=== PATIENT | female | born 1975 | race African-American/Black ===

== ENCOUNTER 2017-09-05 12:01 | Emergency (ER) | payer MEDICAID, OTHER ==
[~2017-09-05] VITALS: Ht 160 cm; Wt 60.0 kg
[~2017-09-05 12:01] MED LIST: FURO-151 PO; GABA-531; HYDR2TAB4 PO; KEPP500 PO; MESA0.37 PO; OXYB5TAB11 PO; POTA10CA42 PO; PRED5TAB48 PO
[2017-09-05] MEDS ORDERED: SODIUM CHLORIDE 0.9% 1,000 ML IV ONE (14:44)
[2017-09-05] MEDS ORDERED: ONDANSETRON HCL 4MG/2ML VIAL IV ONE (15:15)
[2017-09-05] MEDS ORDERED: MORPHINE SULFATE 4 MG/ML CPJ (NOT FOR IM USE) IV ONE (15:15)
[2017-09-05 15:21] LABS: BASOPHILS % 0.3 % (0.0-2.0); EOSINOPHILS % 0.7 % (0.0-5.0); HEMATOCRIT. 38.4 % (36.0-48.0); HEMOGLOBIN. 12.7 g/dL (12.0-16.0); LYMPHOCYTES % 20.3 % (20.0-50.0); MEAN CORPUSCULAR HEMOGLOBIN 30.6 pg (28.0-32.0); MEAN CORPUSCULAR VOLUME 92.2 fL (81.0-99.0); MEAN PLATELET VOLUME 7.7 fl (7.4-10.4); MONOCYTES % 5.9 % (2.0-8.0); NEUTROPHILS % 72.8 % (40.0-76.0); PLATELET 359 x1000/uL (130-400); RED BLOOD CELL COUNT 4.16 mill/uL (4.2-5.4); RED CELL DISTRIBUTION WIDTH 13.8 % (11.6-14.6)
[2017-09-05] MEDS ORDERED: DIPHENHYDRAMINE 50MG/ML VIAL IV ONE (15:30)
[2017-09-05 15:35] LABS: CARBON DIOXIDE 28 mEq/L (21-32); CHLORIDE 107 mEq/L (98-107)
[2017-09-05] MEDS ORDERED: DIATR MEGLU/DIATRIZOATE SOLN 30ML ONE (15:38)
[2017-09-05 16:17] LABS: HCG SCREEN NEGATIVE
[2017-09-05 17:26] LABS: CLARITY URINE CLOUDY (CLEAR); COLOR URINE YELLOW (YELLOW); KETONES URINE 1+ (NEGATIVE); LEUKOCYTE ESTERASE URINE 2+ (NEGATIVE); NITRITE URINE NEGATIVE (NEGATIVE); OCCULT BLOOD URINE NEGATIVE (NEGATIVE); PH URINE 7.5 (4.5-8.0); PROTEIN URINE NEGATIVE (NEGATIVE); SPECIFIC GRAVITY URINE 1.016 (1.005-1.030); UROBILINOGEN URINE 0.2 E.U./dL (0.2-1.0)
[2017-09-05] MEDS ORDERED: IOHEXOL-300 100 ML BOTTLE ONE (18:32)
[2017-09-05 18:46] LABS: *AMPHETAMINES SCREEN URINE NEGATIVE (NEGATIVE); *BARBITURATES SCREEN URINE NEGATIVE (NEGATIVE); *BENZODIAZEPINES SCREEN URINE NEGATIVE (NEGATIVE); CANNABINOID URINE SCREEN NEGATIVE (NEGATIVE); METHADONE URINE SCREEN NEGATIVE (NEGATIVE); PHENCYCLIDINE URINE SCREEN NEGATIVE (NEGATIVE)
[2017-09-05 18:51] LABS: *COCAINE SCREEN URINE PRESUMTIVE POSITIVE (NEGATIVE); OPIATES URINE SCREEN PRESUMTIVE POSITIVE (NEGATIVE)
[2017-09-05 19:38] VITALS: BP 95/55
== END 2017-09-05 20:02 | disposition home or self-care (01) ==
LOC: ER 12:38
DX: K76.0 Fatty (change of) liver, not elsewhere classified (principal); K50.90 Crohn's disease, unspecified, without complications; Z85.038 Personal history of other malignant neoplasm of large intestine; Z90.49 Acquired absence of other specified parts of digestive tract; Z88.6 Allergy status to analgesic agent; Z88.8 Allergy status to other drugs, medicaments and biological substances
CPT/HCPCS: 36415; 74177; 80053; 80305; 81001; 83690; 84703; 85025; 96361; 96374; 96375; 99285; J1200; J2270; J2405; J7030; Q9967; Z7610; Q9963

== ENCOUNTER 2017-10-31 01:56 | Emergency (ER) | payer MEDICAID ==
[~2017-10-31] VITALS: Ht 170.2 cm; Wt 78.0 kg
[2017-10-31] MEDS ORDERED: LEVETIRACETAM 500MG PREMIX 100 ML IV ONE (02:45)
[2017-10-31 07:25] VITALS: BP 130/81
== END 2017-10-31 07:58 | disposition home or self-care (01) ==
LOC: ER 01:56
DX: G40.409 Other generalized epilepsy and epileptic syndromes, not intractable, without status epilepticus (principal); F14.10 Cocaine abuse, uncomplicated; F17.200 Nicotine dependence, unspecified, uncomplicated; Z85.038 Personal history of other malignant neoplasm of large intestine; Z88.5 Allergy status to narcotic agent; Z91.14 Patient's other noncompliance with medication regimen; Z88.6 Allergy status to analgesic agent; Z88.8 Allergy status to other drugs, medicaments and biological substances
CPT/HCPCS: 96365; 96366; 99285; J1953; Z7610

== ENCOUNTER 2017-10-31 08:00 | Emergency (ER) | payer MEDICAID ==
[~2017-10-31] VITALS: Ht 167.6 cm; Wt 59.0 kg
[2017-10-31] MEDS ORDERED: LORAZEPAM 1MG TABLET PO ONE (08:30)
[2017-10-31 09:36] LABS: BASOPHILS % 0.2 % (0.0-2.0); EOSINOPHILS % 0.1 % (0.0-5.0); HEMATOCRIT. 37.3 % (36.0-48.0); HEMOGLOBIN. 12.6 g/dL (12.0-16.0); LYMPHOCYTES % 21.6 % (20.0-50.0); MEAN CORPUSCULAR HEMOGLOBIN 29.7 pg (28.0-32.0); MONOCYTES % 7.6 % (2.0-8.0); NEUTROPHILS % 70.5 % (40.0-76.0); PLATELET 270 x1000/uL (130-400); RED BLOOD CELL COUNT 4.24 mill/uL (4.2-5.4)
[2017-10-31 09:42] LABS: INR 1.1; PROTHROMBIN TIME 11.6 sec (9.4-11.6)
[2017-10-31 09:46] LABS: CHLORIDE 107 mEq/L (98-107)
[2017-10-31 09:57] LABS: AMMONIA < 25 uMol/L (<32); ETHANOL BLOOD < 10 mg/dL
[2017-10-31 11:17] VITALS: BP 125/82
[2017-11-01 10:56] LABS: *AMPHETAMINES SCREEN URINE NEGATIVE (NEGATIVE); *BARBITURATES SCREEN URINE NEGATIVE (NEGATIVE); *BENZODIAZEPINES SCREEN URINE PRESUMTIVE POSITIVE (NEGATIVE); *COCAINE SCREEN URINE PRESUMTIVE POSITIVE (NEGATIVE); METHADONE URINE SCREEN NEGATIVE (NEGATIVE); OPIATES URINE SCREEN PRESUMTIVE POSITIVE (NEGATIVE)
[2017-11-01 10:57] LABS: CANNABINOID URINE SCREEN NEGATIVE (NEGATIVE); PHENCYCLIDINE URINE SCREEN NEGATIVE (NEGATIVE)
== END 2017-10-31 11:57 | disposition home or self-care (01) ==
LOC: ER 08:04
DX: F14.10 Cocaine abuse, uncomplicated (principal); G40.909 Epilepsy, unspecified, not intractable, without status epilepticus; R79.1 Abnormal coagulation profile; F17.200 Nicotine dependence, unspecified, uncomplicated; Z88.5 Allergy status to narcotic agent; Z88.8 Allergy status to other drugs, medicaments and biological substances
CPT/HCPCS: 36415; 80053; 80305; 80307; 80329; 82140; 83880; 84484; 85025; 85610; 99284; G0482; Z7610

== ENCOUNTER 2017-10-31 16:34 | Emergency (ER) | payer MEDICAID ==
[~2017-10-31] VITALS: Ht 167.6 cm; Wt 55.0 kg
[2017-10-31 17:27] LABS: BASOPHILS % 0.2 % (0.0-2.0); EOSINOPHILS % 0.2 % (0.0-5.0); LYMPHOCYTES % 36.1 % (20.0-50.0); MEAN CORPUSCULAR HEMOGLOBIN 29.2 pg (28.0-32.0); MEAN CORPUSCULAR VOLUME 87.7 fL (81.0-99.0); MONOCYTES % 8.7 % (2.0-8.0); NEUTROPHILS % 54.8 % (40.0-76.0); PLATELET 303 x1000/uL (130-400); RED BLOOD CELL COUNT 4.45 mill/uL (4.2-5.4); RED CELL DISTRIBUTION WIDTH 14.3 % (11.6-14.6)
[2017-10-31 17:29] LABS: CHLORIDE 106 mEq/L (98-107)
[2017-10-31 17:32] LABS: INR 1.1; PROTHROMBIN TIME 11.6 sec (9.4-11.6)
[2017-10-31 17:51] LABS: HCG SCREEN NEGATIVE
[2017-10-31] MEDS ORDERED: ONDANSETRON 4MG ODT PO ONE (21:45)
[2017-10-31] MEDS ORDERED: IBUPROFEN 400MG TABLET PO ONE (21:45)
[2017-10-31 22:26] LABS: CLARITY URINE CLEAR (CLEAR); COLOR URINE YELLOW (YELLOW); KETONES URINE 3+ (NEGATIVE); LEUKOCYTE ESTERASE URINE 1+ (NEGATIVE); NITRITE URINE NEGATIVE (NEGATIVE); OCCULT BLOOD URINE NEGATIVE (NEGATIVE); PH URINE 7.5 (4.5-8.0); PROTEIN URINE NEGATIVE (NEGATIVE); SPECIFIC GRAVITY URINE 1.013 (1.005-1.030); UROBILINOGEN URINE 0.2 E.U./dL (0.2-1.0)
[2017-10-31] MEDS ORDERED: LEVETIRACETAM 500MG/5ML CUP PO ONE (23:00)
[2017-11-01 10:00] VITALS: BP 112/68
== END 2017-11-01 10:28 | disposition home or self-care (01) ==
LOC: ER 18:21
DX: N39.0 Urinary tract infection, site not specified (principal); R56.9 Unspecified convulsions; F14.10 Cocaine abuse, uncomplicated; F17.200 Nicotine dependence, unspecified, uncomplicated; Z88.5 Allergy status to narcotic agent; Z88.8 Allergy status to other drugs, medicaments and biological substances
CPT/HCPCS: 36415; 80053; 81003; 83690; 84703; 85025; 85610; 99284; Q0162; Z7610

== ENCOUNTER 2018-11-16 15:02 | Inpatient (IN) | payer MEDICAID ==
[~2018-11-16] VITALS: Ht 167.6 cm; Wt 60.1 kg
[2018-11-16] MEDS: BLOOD SUGAR DIAGNOSTIC STRIP TEST SCH (10:00)
[2018-11-16] MEDS ORDERED: SODIUM CHLORIDE 0.9% 1,000 ML IV ONE (15:33)
[2018-11-16] MEDS ORDERED: ONDANSETRON HCL 4MG/2ML INJ IV STA (15:33)
[2018-11-16] MEDS ORDERED: LORAZEPAM 2MG/ML CPJ IV STA (15:33)
[2018-11-16] MEDS ORDERED: ACTIVATED CHARCOAL 50 G/240 ML TUBE PO ONE (15:45)
[2018-11-16] MEDS ORDERED: LORAZEPAM 2MG/ML CPJ IV ONE ×2 (17:00→19:15)
[2018-11-16 17:25] LABS: CLARITY URINE CLEAR (CLEAR); COLOR URINE YELLOW (YELLOW); KETONES URINE NEGATIVE (NEGATIVE); LEUKOCYTE ESTERASE URINE NEGATIVE (NEGATIVE); NITRITE URINE NEGATIVE (NEGATIVE); OCCULT BLOOD URINE NEGATIVE (NEGATIVE); PROTEIN URINE NEGATIVE (NEGATIVE); UROBILINOGEN URINE 0.2 E.U./dL (0.2-1.0)
[2018-11-16 17:39] LABS: *AMPHETAMINES SCREEN URINE NEGATIVE (NEGATIVE); *BARBITURATES SCREEN URINE NEGATIVE (NEGATIVE); *BENZODIAZEPINES SCREEN URINE NEGATIVE (NEGATIVE); *COCAINE SCREEN URINE NEGATIVE (NEGATIVE); METHADONE URINE SCREEN NEGATIVE (NEGATIVE); OPIATES URINE SCREEN NEGATIVE (NEGATIVE)
[2018-11-16 17:40] LABS: CANNABINOID URINE SCREEN NEGATIVE (NEGATIVE); PHENCYCLIDINE URINE SCREEN NEGATIVE (NEGATIVE)
[2018-11-16 17:44] LABS: BASOPHILS % 0.3 % (0.0-2.0); HEMATOCRIT. 39.4 % (36.0-48.0); HEMOGLOBIN. 13.2 g/dL (12.0-16.0); LYMPHOCYTES % 20.2 % (20.0-50.0); MEAN CORPUSCULAR HEMOGLOBIN 31.2 pg (28.0-32.0); MEAN CORPUSCULAR VOLUME 93.3 fL (81.0-99.0); MEAN PLATELET VOLUME 7.1 fl (7.4-10.4); MONOCYTES % 3.9 % (2.0-8.0); NEUTROPHILS % 75.6 % (40.0-76.0); PLATELET 283 x1000/uL (130-400); RED BLOOD CELL COUNT 4.23 mill/uL (4.2-5.4); RED CELL DISTRIBUTION WIDTH 15.7 % (11.6-14.6)
[2018-11-16 17:47] LABS: CHLORIDE 109 mEq/L (98-107)
[2018-11-16 17:51] LABS: ETHANOL BLOOD < 10 mg/dL; HCG SCREEN NEGATIVE
[2018-11-16 18:00] LABS: INR 1.1; PROTHROMBIN TIME 11.5 sec (9.1-11.1)
[2018-11-16] MEDS ORDERED: WATER IV NR ×2 (19:30→21:00)
[2018-11-16] MEDS ORDERED: DEXT 5% IV NR ×2 (19:30→21:00)
[2018-11-16] MEDS ORDERED: ACETYLCYSTEINE IV NR ×2 (19:30→21:00)
[2018-11-16] MEDS ORDERED: DEXTROSE 50% WATER 50ML SYRINGE IV PRN (20:00)
[2018-11-16] MEDS ORDERED: CLONIDINE 0.1MG TABLET PO PRN (20:00)
[2018-11-16] MEDS: INSULIN LISPRO 100 UNITS/ML SUBCUT SCH (21:00)
[2018-11-16] MEDS ORDERED: POTASSIUM CHLORIDE 20MEQ TABLET SR PO ONE (21:30)
[2018-11-16] MEDS ORDERED: POTASSIUM CHLORIDE INJ 40 MEQ in DEXT 5% WATER 250 ML IV NR (23:15)
[2018-11-17] VITALS (15 sets, daily range): BP systolic 103–140; BP diastolic 63–114
[2018-11-17] MEDS: LORAZEPAM 2MG/ML CPJ IV PRN ×4 (01:13→20:29)
[2018-11-17] MEDS ORDERED: ACETYLCYSTEINE IV NR (02:00)
[2018-11-17] MEDS ORDERED: DEXTROSE 5% IV NR (02:00)
[2018-11-17] MEDS ORDERED: WATER IV NR (02:00)
[2018-11-17 06:31] LABS: HEMATOCRIT. 39.1 % (36.0-48.0); HEMOGLOBIN. 12.8 g/dL (12.0-16.0); MEAN CORPUSCULAR HEMOGLOBIN 30.5 pg (28.0-32.0); MEAN CORPUSCULAR VOLUME 93.3 fL (81.0-99.0); MEAN PLATELET VOLUME 7.2 fl (7.4-10.4); PLATELET 226 x1000/uL (130-400); RED BLOOD CELL COUNT 4.19 mill/uL (4.2-5.4); RED CELL DISTRIBUTION WIDTH 15.9 % (11.6-14.6)
[2018-11-17 06:39] LABS: CHLORIDE 108 mEq/L (98-107)
[2018-11-17 07:42] LABS: PLATELET ESTIMATE NORMAL
[2018-11-17] MEDS: INSULIN LISPRO 100 UNITS/ML SUBCUT SCH ×4 (08:20→21:00)
[2018-11-17] MEDS: BLOOD SUGAR DIAGNOSTIC STRIP TEST SCH ×4 (10:35→21:17)
[2018-11-17] MEDS: SODIUM CHLORIDE 0.9% 1,000 ML IV SCH ×2 (16:53→16:54)
[2018-11-17] MEDS ORDERED: POTASSIUM CHLORIDE 20MEQ TABLET SR PO NR (17:13)
[2018-11-17] MEDS: ONDANSETRON HCL 4MG/2ML INJ IV PRN ×2 (18:32→21:23)
[2018-11-17] MEDS ORDERED: ACETYLCYSTEINE IV SCH (20:00)
[2018-11-17] MEDS ORDERED: WATER IV SCH (20:00)
[2018-11-17] MEDS ORDERED: DEXTROSE 5% IV SCH (20:00)
[2018-11-17] MEDS: NICOTINE 21MG PATCH TD SCH (20:30)
[2018-11-17] MEDS ORDERED: PNEUMOCOCCAL 23-VAL P-SAC VAC 0.5 ML IM ONE (20:45)
[2018-11-17 21:06] LABS: INR 1.6; PROTHROMBIN TIME 15.9 sec (9.1-11.1)
[2018-11-17] MEDS: LEVETIRACETAM 500MG TABLET PO SCH (21:23)
[2018-11-17] MEDS ORDERED: OMEPRAZOLE 20MG CAPSULE EXTENDED RELEASE PO SCH (23:15)
[2018-11-17] MEDS ORDERED: PHYTONADIONE 10MG/ML AMP SUBCUT SCH (23:15)
[2018-11-17] MEDS ORDERED: RIFAXIMIN 550 MG TABLET PO SCH (23:25)
[2018-11-18] VITALS (25 sets, daily range): BP systolic 95–159; BP diastolic 54–76
[2018-11-18] MEDS ORDERED: RIFAXIMIN 550 MG TABLET PO SCH
[2018-11-18] MEDS: LORAZEPAM 2MG/ML CPJ IV PRN ×5 (04:24→20:34)
[2018-11-18] MEDS: SODIUM CHLORIDE 0.9% 1,000 ML IV SCH ×2 (04:30→12:03)
[2018-11-18 05:01] LABS: BASOPHILS % 0.3 % (0.0-2.0); EOSINOPHILS % 1.2 % (0.0-5.0); HEMATOCRIT. 38.3 % (36.0-48.0); HEMOGLOBIN. 12.8 g/dL (12.0-16.0); LYMPHOCYTES % 15.4 % (20.0-50.0); MEAN CORPUSCULAR VOLUME 92.9 fL (81.0-99.0); MEAN PLATELET VOLUME 7.7 fl (7.4-10.4); MONOCYTES % 1.1 % (2.0-8.0); PLATELET 183 x1000/uL (130-400); RED BLOOD CELL COUNT 4.13 mill/uL (4.2-5.4); RED CELL DISTRIBUTION WIDTH 15.7 % (11.6-14.6)
[2018-11-18 05:09] LABS: INR 1.5; PARTIAL THROMBOPLASTIN TIME 27.5 sec (23.4-31.0); PROTHROMBIN TIME 15.1 sec (9.1-11.1)
[2018-11-18 05:26] LABS: CHLORIDE 108 mEq/L (98-107)
[2018-11-18] MEDS: BLOOD SUGAR DIAGNOSTIC STRIP TEST SCH ×4 (06:30→20:34)
[2018-11-18] MEDS: INSULIN LISPRO 100 UNITS/ML SUBCUT SCH ×4 (06:30→21:00)
[2018-11-18] MEDS ORDERED: OMEPRAZOLE 20MG CAPSULE EXTENDED RELEASE PO SCH (06:30)
[2018-11-18] MEDS: OMEPRAZOLE 20MG CAPSULE EXTENDED RELEASE PO SCH ×2 (06:51→20:33)
[2018-11-18] MEDS: ONDANSETRON HCL 4MG/2ML INJ IV PRN ×3 (08:35→20:34)
[2018-11-18] MEDS: LEVETIRACETAM 500MG TABLET PO SCH ×2 (08:35→20:34)
[2018-11-18] MEDS: RIFAXIMIN 550 MG TABLET PO SCH ×2 (08:36→20:34)
[2018-11-18] MEDS: NICOTINE 21MG PATCH TD SCH (08:36)
[2018-11-18] MEDS ORDERED: BENJ PO (11:57)
[2018-11-18] MEDS ORDERED: MULT80TA MT (12:29)
[2018-11-18] MEDS ORDERED: LIDOCAINE HCL 1% 20ML VIAL (Pyxis) INJ ONE (12:53)
[2018-11-18] MEDS: DIPHENHYDRAMINE 50MG/ML VIAL IV PRN (14:10)
[2018-11-18] MEDS: MULTIVITAMINS,THER W-MINERALS TABLET PO SCH (14:17)
[2018-11-18] MEDS ORDERED: WATER IV SCH (18:00)
[2018-11-18] MEDS ORDERED: ACETYLCYSTEINE IV SCH (18:00)
[2018-11-18] MEDS ORDERED: DEXT 5% IV SCH (18:00)
[2018-11-18 20:20] LABS: INR 1.3
[2018-11-18 20:23] LABS: CHLORIDE 108 mEq/L (98-107)
[2018-11-19] VITALS (27 sets, daily range): BP systolic 84–132; BP diastolic 44–100
[2018-11-19] MEDS: LORAZEPAM 2MG/ML CPJ IV PRN ×5 (00:23→17:03)
[2018-11-19] MEDS: DIPHENHYDRAMINE 50MG/ML VIAL IV PRN ×3 (02:56→13:41)
[2018-11-19 05:54] LABS: INR 1.1; PROTHROMBIN TIME 11.6 sec (9.6-11.0)
[2018-11-19 06:06] LABS: BASOPHILS % 0.3 % (0.0-2.0); CHLORIDE 107 mEq/L (98-107); EOSINOPHILS % 1.7 % (0.0-5.0); HEMOGLOBIN. 11.5 g/dL (12.0-16.0); LYMPHOCYTES % 12.1 % (20.0-50.0); MEAN CORPUSCULAR HEMOGLOBIN 31.4 pg (28.0-32.0); MEAN CORPUSCULAR VOLUME 92.9 fL (81.0-99.0); MONOCYTES % 2.3 % (2.0-8.0); NEUTROPHILS % 83.6 % (40.0-76.0); PLATELET 154 x1000/uL (130-400); RED BLOOD CELL COUNT 3.66 mill/uL (4.2-5.4); RED CELL DISTRIBUTION WIDTH 15.6 % (11.6-14.6)
[2018-11-19] MEDS: BLOOD SUGAR DIAGNOSTIC STRIP TEST SCH ×4 (06:36→20:35)
[2018-11-19] MEDS: INSULIN LISPRO 100 UNITS/ML SUBCUT SCH ×4 (06:56→20:35)
[2018-11-19] MEDS: OMEPRAZOLE 20MG CAPSULE EXTENDED RELEASE PO SCH ×2 (06:57→20:34)
[2018-11-19] MEDS: ONDANSETRON HCL 4MG/2ML INJ IV PRN (08:10)
[2018-11-19] MEDS: LEVETIRACETAM 500MG TABLET PO SCH ×2 (08:10→20:34)
[2018-11-19] MEDS: RIFAXIMIN 550 MG TABLET PO SCH ×2 (08:10→20:35)
[2018-11-19] MEDS: MULTIVITAMINS,THER W-MINERALS TABLET PO SCH (08:10)
[2018-11-19] MEDS: NICOTINE 21MG PATCH TD SCH (08:10)
[2018-11-19] MEDS: SODIUM CHLORIDE 0.9% 1,000 ML IV SCH ×2 (08:11→13:42)
[2018-11-19] MEDS: MESALAMINE 400 MG CAPSULE.DR PO SCH ×2 (13:41→17:03)
[2018-11-20] VITALS (29 sets, daily range): BP systolic 79–122; BP diastolic 18–89
[2018-11-20] MEDS: LORAZEPAM 2MG/ML CPJ IV PRN ×5 (02:56→21:33)
[2018-11-20] MEDS: DIPHENHYDRAMINE 50MG/ML VIAL IV PRN ×4 (03:22→21:33)
[2018-11-20] MEDS: SODIUM CHLORIDE 0.9% 1,000 ML IV SCH ×2 (05:20→17:47)
[2018-11-20 06:05] LABS: BASOPHILS % 0.3 % (0.0-2.0); EOSINOPHILS % 3.8 % (0.0-5.0); HEMOGLOBIN. 10.6 g/dL (12.0-16.0); LYMPHOCYTES % 20.6 % (20.0-50.0); MEAN CORPUSCULAR HEMOGLOBIN 31.5 pg (28.0-32.0); MEAN CORPUSCULAR VOLUME 92.6 fL (81.0-99.0); MONOCYTES % 5.9 % (2.0-8.0); NEUTROPHILS % 69.4 % (40.0-76.0); PLATELET 159 x1000/uL (130-400); RED BLOOD CELL COUNT 3.35 mill/uL (4.2-5.4); RED CELL DISTRIBUTION WIDTH 15.5 % (11.6-14.6)
[2018-11-20 06:12] LABS: CHLORIDE 110 mEq/L (98-107)
[2018-11-20] MEDS: OMEPRAZOLE 20MG CAPSULE EXTENDED RELEASE PO SCH ×2 (06:41→20:19)
[2018-11-20] MEDS: BLOOD SUGAR DIAGNOSTIC STRIP TEST SCH ×4 (06:41→20:25)
[2018-11-20] MEDS: INSULIN LISPRO 100 UNITS/ML SUBCUT SCH ×4 (06:44→20:25)
[2018-11-20] MEDS: RIFAXIMIN 550 MG TABLET PO SCH ×2 (08:10→20:19)
[2018-11-20] MEDS: MESALAMINE 400 MG CAPSULE.DR PO SCH ×3 (08:10→17:47)
[2018-11-20] MEDS: NICOTINE 21MG PATCH TD SCH (08:10)
[2018-11-20] MEDS: MULTIVITAMINS,THER W-MINERALS TABLET PO SCH (08:10)
[2018-11-20] MEDS: ONDANSETRON HCL 4MG/2ML INJ IV PRN ×2 (08:11→14:42)
[2018-11-20] MEDS: LEVETIRACETAM 500MG TABLET PO SCH (08:11)
[2018-11-20 14:47] LABS: PHOSPHORUS 3.3 mg/dL (2.5-4.9)
[2018-11-20] MEDS ORDERED: MAGNESIUM 2 G PREMIX 50 ML IV SCH ×2 (16:00)
[2018-11-20] MEDS ORDERED: KCL 20MEQ/100ML PREMIX 100 ML IV SCH ×2 (16:00)
[2018-11-21] VITALS (29 sets, daily range): BP systolic 73–119; BP diastolic 44–77
[2018-11-21] MEDS: DIPHENHYDRAMINE 50MG/ML VIAL IV PRN ×4 (02:26→22:58)
[2018-11-21] MEDS: LORAZEPAM 2MG/ML CPJ IV PRN ×5 (02:26→21:29)
[2018-11-21] MEDS: BLOOD SUGAR DIAGNOSTIC STRIP TEST SCH ×4 (06:24→21:00)
[2018-11-21] MEDS: INSULIN LISPRO 100 UNITS/ML SUBCUT SCH ×4 (06:25→21:00)
[2018-11-21] MEDS: OMEPRAZOLE 20MG CAPSULE EXTENDED RELEASE PO SCH ×2 (06:27→21:30)
[2018-11-21 06:35] LABS: BASOPHILS % 0.6 % (0.0-2.0); HEMATOCRIT. 33.3 % (36.0-48.0); HEMOGLOBIN. 11.3 g/dL (12.0-16.0); LYMPHOCYTES % 38.5 % (20.0-50.0); MEAN CORPUSCULAR HEMOGLOBIN 31.1 pg (28.0-32.0); MEAN CORPUSCULAR VOLUME 91.4 fL (81.0-99.0); MEAN PLATELET VOLUME 8.3 fl (7.4-10.4); MONOCYTES % 10.8 % (2.0-8.0); NEUTROPHILS % 44.1 % (40.0-76.0); PLATELET 157 x1000/uL (130-400); RED BLOOD CELL COUNT 3.64 mill/uL (4.2-5.4); RED CELL DISTRIBUTION WIDTH 15.5 % (11.6-14.6)
[2018-11-21 06:44] LABS: CHLORIDE 104 mEq/L (98-107)
[2018-11-21] MEDS: SODIUM CHLORIDE 0.9% 1,000 ML IV SCH ×2 (08:20→20:00)
[2018-11-21] MEDS: MULTIVITAMINS,THER W-MINERALS TABLET PO SCH (08:20)
[2018-11-21] MEDS: NICOTINE 21MG PATCH TD SCH (08:20)
[2018-11-21] MEDS: RIFAXIMIN 550 MG TABLET PO SCH ×2 (08:20→21:29)
[2018-11-21] MEDS: MESALAMINE 400 MG CAPSULE.DR PO SCH ×3 (08:20→18:29)
[2018-11-22] VITALS (12 sets, daily range): BP systolic 80–111; BP diastolic 50–68
[2018-11-22] MEDS: LORAZEPAM 2MG/ML CPJ IV PRN ×4 (01:59→20:17)
[2018-11-22] MEDS: DIPHENHYDRAMINE 50MG/ML VIAL IV PRN ×3 (05:56→18:57)
[2018-11-22 06:33] LABS: BASOPHILS % 0.3 % (0.0-2.0); EOSINOPHILS % 3.7 % (0.0-5.0); HEMATOCRIT. 34.1 % (36.0-48.0); HEMOGLOBIN. 11.3 g/dL (12.0-16.0); LYMPHOCYTES % 33.6 % (20.0-50.0); MEAN CORPUSCULAR HEMOGLOBIN 30.8 pg (28.0-32.0); MEAN CORPUSCULAR VOLUME 92.6 fL (81.0-99.0); MEAN PLATELET VOLUME 7.8 fl (7.4-10.4); MONOCYTES % 9.3 % (2.0-8.0); NEUTROPHILS % 53.1 % (40.0-76.0); PLATELET 209 x1000/uL (130-400); RED BLOOD CELL COUNT 3.68 mill/uL (4.2-5.4); RED CELL DISTRIBUTION WIDTH 15.2 % (11.6-14.6)
[2018-11-22 07:14] LABS: CHLORIDE 105 mEq/L (98-107)
[2018-11-22] MEDS: BLOOD SUGAR DIAGNOSTIC STRIP TEST SCH ×4 (07:30→21:06)
[2018-11-22] MEDS: MESALAMINE 400 MG CAPSULE.DR PO SCH ×3 (09:00→17:15)
[2018-11-22] MEDS: MULTIVITAMINS,THER W-MINERALS TABLET PO SCH (09:12)
[2018-11-22] MEDS: RIFAXIMIN 550 MG TABLET PO SCH ×2 (09:12→21:58)
[2018-11-22] MEDS: NICOTINE 21MG PATCH TD SCH (09:13)
[2018-11-22] MEDS: OMEPRAZOLE 20MG CAPSULE EXTENDED RELEASE PO SCH ×2 (09:13→21:00)
[2018-11-22] MEDS: SODIUM CHLORIDE 0.9% 1,000 ML IV SCH ×2 (09:20→21:59)
[2018-11-22] MEDS: CHLORDIAZEPOXIDE 5 MG CAPSULE PO SCH ×2 (14:00→21:58)
[2018-11-23] VITALS (12 sets, daily range): BP systolic 91–111; BP diastolic 50–88
[2018-11-23] MEDS: LORAZEPAM 2MG/ML CPJ IV PRN ×6 (01:23→23:59)
[2018-11-23] MEDS: DIPHENHYDRAMINE 50MG/ML VIAL IV PRN ×4 (01:23→23:59)
[2018-11-23] MEDS: CHLORDIAZEPOXIDE 5 MG CAPSULE PO SCH ×3 (05:37→21:19)
[2018-11-23 07:05] LABS: CHLORIDE 105 mEq/L (98-107)
[2018-11-23] MEDS: BLOOD SUGAR DIAGNOSTIC STRIP TEST SCH ×4 (07:30→21:19)
[2018-11-23 07:55] LABS: BASOPHILS % 0.5 % (0.0-2.0); EOSINOPHILS % 3.3 % (0.0-5.0); HEMATOCRIT. 35.4 % (36.0-48.0); HEMOGLOBIN. 11.8 g/dL (12.0-16.0); LYMPHOCYTES % 41.6 % (20.0-50.0); MEAN CORPUSCULAR HEMOGLOBIN 31.1 pg (28.0-32.0); MEAN CORPUSCULAR VOLUME 93.1 fL (81.0-99.0); MEAN PLATELET VOLUME 8.2 fl (7.4-10.4); MONOCYTES % 10.1 % (2.0-8.0); NEUTROPHILS % 44.5 % (40.0-76.0); PLATELET 215 x1000/uL (130-400); RED BLOOD CELL COUNT 3.81 mill/uL (4.2-5.4); RED CELL DISTRIBUTION WIDTH 15.5 % (11.6-14.6)
[2018-11-23] MEDS: NICOTINE 21MG PATCH TD SCH (08:59)
[2018-11-23] MEDS: MESALAMINE 400 MG CAPSULE.DR PO SCH ×3 (09:00→16:52)
[2018-11-23] MEDS: MULTIVITAMINS,THER W-MINERALS TABLET PO SCH (09:00)
[2018-11-23] MEDS: OMEPRAZOLE 20MG CAPSULE EXTENDED RELEASE PO SCH ×2 (09:00→21:19)
[2018-11-23] MEDS: RIFAXIMIN 550 MG TABLET PO SCH ×2 (09:00→21:18)
[2018-11-23] MEDS: SODIUM CHLORIDE 0.9% 1,000 ML IV SCH (12:00)
[2018-11-23] MEDS: DICYCLOMINE HCL 20MG TABLET PO SCH (21:18)
[2018-11-24] VITALS (12 sets, daily range): BP systolic 85–111; BP diastolic 18–64
[2018-11-24] MEDS: LORAZEPAM 2MG/ML CPJ IV PRN ×5 (04:00→22:14)
[2018-11-24] MEDS: SODIUM CHLORIDE 0.9% 1,000 ML IV SCH ×2 (04:00→12:32)
[2018-11-24 06:46] LABS: BASOPHILS % 0.5 % (0.0-2.0); EOSINOPHILS % 4.6 % (0.0-5.0); HEMATOCRIT. 32.5 % (36.0-48.0); HEMOGLOBIN. 11.1 g/dL (12.0-16.0); LYMPHOCYTES % 42.2 % (20.0-50.0); MEAN CORPUSCULAR HEMOGLOBIN 31.6 pg (28.0-32.0); MEAN CORPUSCULAR VOLUME 92.2 fL (81.0-99.0); MEAN PLATELET VOLUME 8.1 fl (7.4-10.4); MONOCYTES % 13.2 % (2.0-8.0); NEUTROPHILS % 39.5 % (40.0-76.0); PLATELET 208 x1000/uL (130-400); RED BLOOD CELL COUNT 3.53 mill/uL (4.2-5.4); RED CELL DISTRIBUTION WIDTH 15.5 % (11.6-14.6)
[2018-11-24] MEDS: CHLORDIAZEPOXIDE 5 MG CAPSULE PO SCH ×3 (06:55→21:44)
[2018-11-24] MEDS: BLOOD SUGAR DIAGNOSTIC STRIP TEST SCH ×4 (07:30→21:00)
[2018-11-24 08:26] LABS: CHLORIDE 106 mEq/L (98-107)
[2018-11-24] MEDS: NICOTINE 21MG PATCH TD SCH (08:58)
[2018-11-24] MEDS: RIFAXIMIN 550 MG TABLET PO SCH ×2 (08:58→20:29)
[2018-11-24] MEDS: OMEPRAZOLE 20MG CAPSULE EXTENDED RELEASE PO SCH ×2 (08:59→20:27)
[2018-11-24] MEDS: DICYCLOMINE HCL 20MG TABLET PO SCH (08:59)
[2018-11-24] MEDS: MULTIVITAMINS,THER W-MINERALS TABLET PO SCH (08:59)
[2018-11-24] MEDS: MESALAMINE 400 MG CAPSULE.DR PO SCH ×3 (08:59→18:16)
[2018-11-24] MEDS: DIPHENHYDRAMINE 50MG/ML VIAL IV PRN ×2 (12:09→20:27)
[2018-11-24] MEDS: CLOTRIMAZOLE 1% CREAM 30GM TOP SCH (23:54)
[2018-11-25] VITALS (9 sets, daily range): BP systolic 91–113; BP diastolic 47–76
[2018-11-25] MEDS: SODIUM CHLORIDE 0.9% 1,000 ML IV SCH (02:16)
[2018-11-25] MEDS: DIPHENHYDRAMINE 50MG/ML VIAL IV PRN ×2 (02:30→08:34)
[2018-11-25] MEDS: LORAZEPAM 2MG/ML CPJ IV PRN ×2 (04:22→10:10)
[2018-11-25] MEDS: CHLORDIAZEPOXIDE 5 MG CAPSULE PO SCH (06:11)
[2018-11-25] MEDS: BLOOD SUGAR DIAGNOSTIC STRIP TEST SCH ×2 (07:30→12:36)
[2018-11-25] MEDS: OMEPRAZOLE 20MG CAPSULE EXTENDED RELEASE PO SCH (08:32)
[2018-11-25] MEDS: MESALAMINE 400 MG CAPSULE.DR PO SCH (08:32)
[2018-11-25] MEDS: NICOTINE 21MG PATCH TD SCH (08:33)
[2018-11-25] MEDS: MULTIVITAMINS,THER W-MINERALS TABLET PO SCH (08:34)
[2018-11-25] MEDS: CLOTRIMAZOLE 1% CREAM 30GM TOP SCH (08:50)
[2018-11-25] MEDS: DICYCLOMINE HCL 20MG TABLET PO SCH (08:50)
[2018-11-25] MEDS: RIFAXIMIN 550 MG TABLET PO SCH (08:50)
[2018-11-25 09:48] LABS: BASOPHILS % 0.7 % (0.0-2.0); EOSINOPHILS % 3.6 % (0.0-5.0); HEMATOCRIT. 34.1 % (36.0-48.0); HEMOGLOBIN. 11.5 g/dL (12.0-16.0); LYMPHOCYTES % 29.6 % (20.0-50.0); MEAN CORPUSCULAR HEMOGLOBIN 30.9 pg (28.0-32.0); MEAN CORPUSCULAR VOLUME 91.9 fL (81.0-99.0); MEAN PLATELET VOLUME 8.2 fl (7.4-10.4); MONOCYTES % 11.8 % (2.0-8.0); NEUTROPHILS % 54.3 % (40.0-76.0); PLATELET 233 x1000/uL (130-400); RED BLOOD CELL COUNT 3.71 mill/uL (4.2-5.4); RED CELL DISTRIBUTION WIDTH 15.2 % (11.6-14.6)
[2018-11-25 10:16] LABS: CHLORIDE 105 mEq/L (98-107)
== END 2018-11-25 17:00 | disposition home or self-care (01) | DRG 817 ==
LOC: ER 15:02 → MICUNO 19:11 → ENRESERV 11-17 14:02 → MICUNO 11-17 15:34 → 5EST 11-21 22:21
PROVIDERS: ADMIT Internal Medicine; ATTEND Internal Medicine
PROC: 02HV33Z Insertion of Infusion Device into Superior Vena Cava, Percutaneous Approach (ICD-10-PCS; principal; 2018-11-18)
PROC: B548ZZA Ultrasonography of Superior Vena Cava, Guidance (ICD-10-PCS; 2018-11-18)
DX: T39.1X2A Poisoning by 4-Aminophenol derivatives, intentional self-harm, initial encounter (principal); I47.2 Ventricular tachycardia; E87.8 Other disorders of electrolyte and fluid balance, not elsewhere classified; K50.90 Crohn's disease, unspecified, without complications; E83.51 Hypocalcemia; B17.9 Acute viral hepatitis, unspecified; F32.9 Major depressive disorder, single episode, unspecified; G40.909 Epilepsy, unspecified, not intractable, without status epilepticus; I10 Essential (primary) hypertension; E87.6 Hypokalemia; F41.9 Anxiety disorder, unspecified; J44.9 Chronic obstructive pulmonary disease, unspecified; F17.210 Nicotine dependence, cigarettes, uncomplicated; Z91.5 Personal history of self-harm; Z90.710 Acquired absence of both cervix and uterus; Z90.49 Acquired absence of other specified parts of digestive tract; Z90.721 Acquired absence of ovaries, unilateral; Z79.899 Other long term (current) drug therapy; Y92.89 Other specified places as the place of occurrence of the external cause; Z88.5 Allergy status to narcotic agent; Z88.8 Allergy status to other drugs, medicaments and biological substances
CPT/HCPCS: 36415; 36569; 71045; 76937; 80048; 80076; 80305; 80307; 80320; 80329; 82140; 82962; 83036; 83735; 84100; 84443; 84484; 84703; 87493; 90732; 93005; 93306; 93970; 96365; 96366; 96375; 99285; A6261; C1725; J0132; J1200; J2060; J2405; J3430; J3475; J3480; J3490; J7030; J7060; J7070; G0480

== ENCOUNTER 2018-12-02 19:52 | Emergency (ER) | payer MEDICAID ==
[~2018-12-02] VITALS: Ht 167.6 cm; Wt 72.0 kg
[~2018-12-02 19:52] MED LIST changes: +BENJ PO; +MULT80TA MT
[2018-12-03 00:52] LABS: BASOPHILS % 0.5 % (0.0-2.0); EOSINOPHILS % 0.3 % (0.0-5.0); HEMOGLOBIN. 12.5 g/dL (12.0-16.0); LYMPHOCYTES % 31.4 % (20.0-50.0); MEAN CORPUSCULAR HEMOGLOBIN 31.3 pg (28.0-32.0); MEAN CORPUSCULAR VOLUME 92.6 fL (81.0-99.0); MEAN PLATELET VOLUME 7.6 fl (7.4-10.4); MONOCYTES % 10.1 % (2.0-8.0); NEUTROPHILS % 57.7 % (40.0-76.0); PLATELET 341 x1000/uL (130-400)
[2018-12-03 00:56] LABS: CHLORIDE 104 mEq/L (98-107)
[2018-12-03 01:00] LABS: HCG SCREEN NEGATIVE
[2018-12-03 01:03] LABS: ETHANOL BLOOD < 10 mg/dL
[2018-12-03] MEDS ORDERED: POTASSIUM CHLORIDE 20MEQ TABLET SR PO ONE (01:15)
[2018-12-03 01:39] LABS: *AMPHETAMINES SCREEN URINE NEGATIVE (NEGATIVE); CANNABINOID URINE SCREEN NEGATIVE (NEGATIVE); METHADONE URINE SCREEN NEGATIVE (NEGATIVE); OPIATES URINE SCREEN NEGATIVE (NEGATIVE); PHENCYCLIDINE URINE SCREEN NEGATIVE (NEGATIVE)
[2018-12-03 01:40] LABS: *BARBITURATES SCREEN URINE NEGATIVE (NEGATIVE)
[2018-12-03 01:42] LABS: *BENZODIAZEPINES SCREEN URINE PRESUMTIVE POSITIVE (NEGATIVE); *COCAINE SCREEN URINE PRESUMTIVE POSITIVE (NEGATIVE)
[2018-12-03] MEDS ORDERED: DIPHENHYDRAMINE 50MG CAPSULE PO ONE (03:30)
[2018-12-03] MEDS ORDERED: LORAZEPAM 1MG TABLET PO ONE (13:45)
[2018-12-03 17:50] VITALS: BP 128/70
== END 2018-12-03 18:16 ==
LOC: ER 19:52
DX: F32.9 Major depressive disorder, single episode, unspecified (principal); F29 Unspecified psychosis not due to a substance or known physiological condition; J44.9 Chronic obstructive pulmonary disease, unspecified; I10 Essential (primary) hypertension; F20.9 Schizophrenia, unspecified; R56.9 Unspecified convulsions; F17.200 Nicotine dependence, unspecified, uncomplicated; Z90.49 Acquired absence of other specified parts of digestive tract; Z91.19 Patient's noncompliance with other medical treatment and regimen
CPT/HCPCS: 36415; 80048; 80305; 80307; 80320; 80329; 84703; 85025; 99285; Q0163; G0480

== ENCOUNTER 2018-12-13 03:34 | Emergency (ER) | payer MEDICAID ==
[~2018-12-13] VITALS: Ht 170.2 cm; Wt 64.0 kg
[2018-12-13] MEDS ORDERED: SODIUM CHLORIDE 0.9% 1,000 ML IV ONE (04:03)
[2018-12-13] MEDS ORDERED: LORAZEPAM 2MG/ML CPJ IV STA (04:03)
[2018-12-13 04:25] LABS: CLARITY URINE TURBID (CLEAR); COLOR URINE YELLOW (YELLOW); KETONES URINE NEGATIVE (NEGATIVE); LEUKOCYTE ESTERASE URINE 3+ (NEGATIVE); NITRITE URINE NEGATIVE (NEGATIVE); OCCULT BLOOD URINE TRACE (NEGATIVE); PROTEIN URINE NEGATIVE (NEGATIVE); SPECIFIC GRAVITY URINE 1.015 (1.005-1.030); UROBILINOGEN URINE 0.2 E.U./dL (0.2-1.0)
[2018-12-13 04:33] LABS: *AMPHETAMINES SCREEN URINE NEGATIVE (NEGATIVE); *BARBITURATES SCREEN URINE NEGATIVE (NEGATIVE); *BENZODIAZEPINES SCREEN URINE NEGATIVE (NEGATIVE); METHADONE URINE SCREEN NEGATIVE (NEGATIVE); OPIATES URINE SCREEN NEGATIVE (NEGATIVE)
[2018-12-13 04:34] LABS: CANNABINOID URINE SCREEN NEGATIVE (NEGATIVE); PHENCYCLIDINE URINE SCREEN NEGATIVE (NEGATIVE)
[2018-12-13 04:49] LABS: BASOPHILS % 0.4 % (0.0-2.0); EOSINOPHILS % 0.5 % (0.0-5.0); HEMOGLOBIN. 12.7 g/dL (12.0-16.0); LYMPHOCYTES % 22.8 % (20.0-50.0); MEAN CORPUSCULAR HEMOGLOBIN 30.9 pg (28.0-32.0); MEAN CORPUSCULAR VOLUME 92.7 fL (81.0-99.0); MEAN PLATELET VOLUME 7.6 fl (7.4-10.4); MONOCYTES % 11.4 % (2.0-8.0); NEUTROPHILS % 64.9 % (40.0-76.0); PLATELET 320 x1000/uL (130-400); RED CELL DISTRIBUTION WIDTH 14.6 % (11.6-14.6)
[2018-12-13 05:10] LABS: CHLORIDE 110 mEq/L (98-107)
[2018-12-13 05:14] LABS: ETHANOL BLOOD < 10 mg/dL
[2018-12-13 05:22] LABS: *COCAINE SCREEN URINE PRESUMTIVE POSITIVE (NEGATIVE)
[2018-12-13] MEDS ORDERED: NITROFURANTOIN 100MG M/M CAPSULE PO ONE (05:45)
[2018-12-13 06:39] LABS: HCG SCREEN NEGATIVE
[2018-12-13] MEDS ORDERED: LORAZEPAM 2MG/ML CPJ IV ONE (08:45)
[2018-12-13] MEDS ORDERED: LORAZEPAM 0.5MG TABLET PO ONE (16:15)
[2018-12-13] MEDS: LEVETIRACETAM 500MG TABLET PO SCH (21:00)
[2018-12-13] MEDS: LORAZEPAM 1MG TABLET PO PRN (21:00)
[2018-12-14] MEDS: ACETAMINOPHEN 325MG TABLET PO PRN ×2 (02:33→10:33)
[2018-12-14] MEDS ORDERED: ZIPRASIDONE HCL 20MG CAPSULE PO SCH (09:00)
[2018-12-14] MEDS: LEVETIRACETAM 500MG TABLET PO SCH (09:30)
[2018-12-14] MEDS: LORAZEPAM 1MG TABLET PO PRN (10:18)
[2018-12-14 11:00] VITALS: BP 105/58
== END 2018-12-14 11:05 | disposition home or self-care (01) ==
LOC: ER 03:48
DX: T14.91XA Suicide attempt, initial encounter (principal); F20.9 Schizophrenia, unspecified; F32.9 Major depressive disorder, single episode, unspecified; F15.10 Other stimulant abuse, uncomplicated; F14.10 Cocaine abuse, uncomplicated; Z88.6 Allergy status to analgesic agent; Z88.1 Allergy status to other antibiotic agents; Z88.5 Allergy status to narcotic agent; Z88.8 Allergy status to other drugs, medicaments and biological substances; Z79.899 Other long term (current) drug therapy; Z90.49 Acquired absence of other specified parts of digestive tract
CPT/HCPCS: 36415; 80053; 80305; 80307; 80320; 80329; 81003; 84703; 85025; 87086; 93005; 96374; 96376; 99284; C1893; J2060; J7030; Z7610; G0480

== ENCOUNTER 2019-01-09 00:24 | Emergency (ER) | payer MEDICAID ==
[~2019-01-09] VITALS: Ht 167.6 cm; Wt 70.0 kg
[2019-01-09] MEDS ORDERED: LORAZEPAM 2MG/ML CPJ IV ONE (03:15)
[2019-01-09] MEDS ORDERED: ONDANSETRON HCL 4MG/2ML INJ IV ONE (03:15)
[2019-01-09] MEDS ORDERED: MORPHINE SULFATE 4 MG/ML CPJ (NOT FOR IM USE) IV ONE (03:15)
[2019-01-09] MEDS ORDERED: SODIUM CHLORIDE 0.9% 1,000 ML IV ONE (04:05)
[2019-01-09 04:45] LABS: BASOPHILS % 0.3 % (0.0-2.0); HEMATOCRIT. 38.8 % (36.0-48.0); HEMOGLOBIN. 12.9 g/dL (12.0-16.0); LYMPHOCYTES % 12.5 % (20.0-50.0); MEAN CORPUSCULAR HEMOGLOBIN 30.8 pg (28.0-32.0); MEAN CORPUSCULAR VOLUME 92.6 fL (81.0-99.0); MEAN PLATELET VOLUME 7.3 fl (7.4-10.4); MONOCYTES % 4.1 % (2.0-8.0); NEUTROPHILS % 83.1 % (40.0-76.0); PLATELET 271 x1000/uL (130-400); RED BLOOD CELL COUNT 4.19 mill/uL (4.2-5.4); RED CELL DISTRIBUTION WIDTH 14.3 % (11.6-14.6)
[2019-01-09 04:52] LABS: CHLORIDE 112 mEq/L (98-107)
[2019-01-09 04:54] LABS: INR 1.1; PROTHROMBIN TIME 11.5 sec (9.6-11.0)
[2019-01-09] MEDS ORDERED: DIPHENHYDRAMINE 50MG/ML VIAL IV ONE (05:15)
[2019-01-09 06:17] LABS: CHLORIDE 114 mEq/L (98-107)
[2019-01-09 06:20] LABS: ETHANOL BLOOD 96 mg/dL
[2019-01-09 07:58] LABS: CLARITY URINE CLEAR (CLEAR); COLOR URINE YELLOW (YELLOW); KETONES URINE NEGATIVE (NEGATIVE); LEUKOCYTE ESTERASE URINE 1+ (NEGATIVE); NITRITE URINE NEGATIVE (NEGATIVE); OCCULT BLOOD URINE 2+ (NEGATIVE); PROTEIN URINE NEGATIVE (NEGATIVE); SPECIFIC GRAVITY URINE 1.006 (1.005-1.030); UROBILINOGEN URINE 0.2 E.U./dL (0.2-1.0)
[2019-01-09 09:00] LABS: *AMPHETAMINES SCREEN URINE NEGATIVE (NEGATIVE); *BARBITURATES SCREEN URINE NEGATIVE (NEGATIVE); *BENZODIAZEPINES SCREEN URINE NEGATIVE (NEGATIVE); METHADONE URINE SCREEN NEGATIVE (NEGATIVE); OPIATES URINE SCREEN NEGATIVE (NEGATIVE)
[2019-01-09 09:01] LABS: CANNABINOID URINE SCREEN NEGATIVE (NEGATIVE); PHENCYCLIDINE URINE SCREEN NEGATIVE (NEGATIVE)
[2019-01-09 09:04] LABS: *COCAINE SCREEN URINE PRESUMTIVE POSITIVE (NEGATIVE)
[2019-01-09] MEDS ORDERED: HYDROCODONE/ACETAMINOPHEN 5/325MG TABLET PO ONE (09:45)
[2019-01-09] MEDS ORDERED: NITROFURANTOIN 100MG M/M CAPSULE PO ONE (09:45)
[2019-01-09] MEDS ORDERED: LORAZEPAM 1MG TABLET PO ONE (16:45)
[2019-01-10] MEDS ORDERED: ACETAMINOPHEN 325MG TABLET PO SCH (00:58)
[2019-01-10] MEDS ORDERED: LORAZEPAM 1MG TABLET PO SCH (01:00)
[2019-01-10] MEDS ORDERED: DIPHENHYDRAMINE 25MG CAPSULE PO SCH (01:00)
[2019-01-10] MEDS ORDERED: LORAZEPAM 1MG TABLET PO ONE (11:15)
[2019-01-10] MEDS ORDERED: NITROFURANTOIN 100MG M/M CAPSULE PO ONE (13:15)
[2019-01-10] MEDS ORDERED: QUETIAPINE FUMARATE 50MG TABLET PO SCH (16:30)
[2019-01-10] MEDS ORDERED: DIPHENHYDRAMINE 25MG CAPSULE PO ONE (22:30)
[2019-01-10] MEDS ORDERED: QUETIAPINE FUMARATE 100MG TABLET PO SCH (23:25)
[2019-01-11] MEDS ORDERED: LEVETIRACETAM 500MG TABLET PO ONE (01:00)
[2019-01-11 08:35] VITALS: BP 116/62
[2019-01-11] MEDS ORDERED: NITROFURANTOIN 100MG M/M CAPSULE PO SCH (09:00)
[2019-01-11] MEDS ORDERED: LEVETIRACETAM 500MG TABLET PO SCH (09:00)
== END 2019-01-11 09:15 ==
LOC: EEVIPCON 00:50 → ER 00:50
DX: T40.5X1A Poisoning by cocaine, accidental (unintentional), initial encounter (principal); T51.0X1A Toxic effect of ethanol, accidental (unintentional), initial encounter; R45.851 Suicidal ideations; R10.84 Generalized abdominal pain; R19.7 Diarrhea, unspecified; F41.9 Anxiety disorder, unspecified; K50.90 Crohn's disease, unspecified, without complications; I89.0 Lymphedema, not elsewhere classified; G40.909 Epilepsy, unspecified, not intractable, without status epilepticus; Z98.890 Other specified postprocedural states; F32.9 Major depressive disorder, single episode, unspecified; Z87.01 Personal history of pneumonia (recurrent); Z86.19 Personal history of other infectious and parasitic diseases; Z88.6 Allergy status to analgesic agent; Z88.1 Allergy status to other antibiotic agents; Z88.9 Allergy status to unspecified drugs, medicaments and biological substances; Y92.89 Other specified places as the place of occurrence of the external cause
CPT/HCPCS: 36415; 71045; 80048; 80053; 80305; 80307; 80320; 80329; 81003; 83690; 85025; 85610; 87493; 93005; 96361; 96374; 96375; 99285; J2060; J2270; J2405; J7030; Q0163; Z7610; 99284; G0480

== ENCOUNTER 2019-01-25 09:10 | Inpatient (IN) | payer MEDICAID ==
[~2019-01-25] VITALS: Ht 167.6 cm; Wt 65.4 kg
[2019-01-25] VITALS (35 sets, daily range): BP systolic 85–121; BP diastolic 29–75
[2019-01-25] MEDS ORDERED: SODIUM CHLORIDE 0.9% 1,000 ML IV ONE ×2 (09:26→09:31)
[2019-01-25] MEDS ORDERED: LORAZEPAM 2MG/ML CPJ IV STA (09:31)
[2019-01-25] MEDS ORDERED: LEVETIRACETAM 500MG PREMIX 100 ML IV ONE (09:45)
[2019-01-25] MEDS ORDERED: LORAZEPAM 2MG/ML CPJ ONE (09:57)
[2019-01-25] MEDS ORDERED: LORAZEPAM 2MG/ML CPJ IV ONE ×2 (10:00→12:00)
[2019-01-25 10:08] LABS: BG BASE EXCESS -11.7 mmol/L (-2.0-2.0); BG CARBOXYHEMOGLOBIN 0.4 % (0.5-1.5); BG DEOXYHEMOGLOBIN 0.5 % (0.0-5.0); BG FRACTION INSPIRED OXYGEN 100; BG HCO3 ACT 16.2 mmol/L (22.0-26.0); BG METHEMOGLOBIN 0.4 % (0.0-1.5); BG OXYGEN SATURATION 99.5 % (92.0-98.5); BG OXYHEMOGLOBIN 98.7 % (94.0-97.0); BG PCO2 44.2 mmHg (35.0-45.0); BG PH 7.183 (7.350-7.450); BG PO2 315.3 mmHg (75.0-100.0); BG SAMPLE SITE RIGHT BRACHIAL; BG TOTAL HEMOGLOBIN 13.8 g/dL (12.0-18.0); BG VENT MODE MASK - NRB
[2019-01-25 10:25] LABS: BASOPHILS % 0.1 % (0.0-2.0); HEMATOCRIT. 38.1 % (36.0-48.0); HEMOGLOBIN. 12.5 g/dL (12.0-16.0); LYMPHOCYTES % 7.6 % (20.0-50.0); MEAN CORPUSCULAR HEMOGLOBIN 30.7 pg (28.0-32.0); MEAN CORPUSCULAR VOLUME 93.9 fL (81.0-99.0); MEAN PLATELET VOLUME 7.1 fl (7.4-10.4); MONOCYTES % 5.4 % (2.0-8.0); NEUTROPHILS % 86.9 % (40.0-76.0); PLATELET 327 x1000/uL (130-400); RED BLOOD CELL COUNT 4.06 mill/uL (4.2-5.4); RED CELL DISTRIBUTION WIDTH 15.1 % (11.6-14.6)
[2019-01-25] MEDS ORDERED: ETOMIDATE 2MG/ML 10ML VIAL IV ONE (10:30)
[2019-01-25] MEDS ORDERED: PROPOFOL 10MG/ML 100ML 100 ML IV ONE ×2 (10:30→12:00)
[2019-01-25] MEDS ORDERED: VANCOMYCIN 1 G PREMIX 200 ML IV ONE (10:30)
[2019-01-25] MEDS ORDERED: SODIUM CHLORIDE 0.9% 10ML VIAL ONE (10:30)
[2019-01-25] MEDS ORDERED: SODIUM CHLORIDE 0.9% 1000ML BAG (SEPSIS BOLUS) IV ONE (10:30)
[2019-01-25] MEDS ORDERED: VECURONIUM BROMIDE 10 MG/VIAL IV ONE (10:30)
[2019-01-25 10:31] LABS: CHLORIDE 100 mEq/L (98-107)
[2019-01-25 10:32] LABS: PROTHROMBIN TIME 10.7 sec (9.6-11.0)
[2019-01-25 10:35] LABS: HCG SCREEN NEGATIVE
[2019-01-25 10:38] LABS: ETHANOL BLOOD < 10 mg/dL
[2019-01-25 10:42] LABS: CREATINE KINASE 324 IU/L (26-192)
[2019-01-25 10:44] LABS: CARBAMAZEPINE < 0.5 ug/mL (4-12); PHENOBARBITAL < 2.1 ug/mL (15.0-40.0)
[2019-01-25 10:54] LABS: VALPROIC ACID < 3.0 ug/mL (50-100)
[2019-01-25 11:25] LABS: BG BASE EXCESS 2.6 mmol/L (-2.0-2.0); BG CARBOXYHEMOGLOBIN 0.3 % (0.5-1.5); BG FRACTION INSPIRED OXYGEN 50; BG HCO3 ACT 26.1 mmol/L (22.0-26.0); BG METHEMOGLOBIN 0.4 % (0.0-1.5); BG OXYHEMOGLOBIN 98.3 % (94.0-97.0); BG PCO2 36.3 mmHg (35.0-45.0); BG PH 7.474 (7.350-7.450); BG PO2 206.3 mmHg (75.0-100.0); BG SAMPLE SITE RIGHT BRACHIAL; BG TIDAL VOLUME(mL) 450 mL; BG VENT MODE VENT - A/C; BG VENT RATE 14 set
[2019-01-25 12:11] LABS: CLARITY URINE CLEAR (CLEAR); COLOR URINE YELLOW (YELLOW); KETONES URINE 1+ (NEGATIVE); LEUKOCYTE ESTERASE URINE NEGATIVE (NEGATIVE); NITRITE URINE NEGATIVE (NEGATIVE); OCCULT BLOOD URINE NEGATIVE (NEGATIVE); PROTEIN URINE NEGATIVE (NEGATIVE); UROBILINOGEN URINE 0.2 E.U./dL (0.2-1.0)
[2019-01-25] MEDS ORDERED: MIDAZOLAM HCL 50 MG in DEXTROSE 5% WATER 40 ML IV ONE (12:15)
[2019-01-25 12:32] LABS: *BARBITURATES SCREEN URINE NEGATIVE (NEGATIVE); *BENZODIAZEPINES SCREEN URINE NEGATIVE (NEGATIVE); METHADONE URINE SCREEN NEGATIVE (NEGATIVE); OPIATES URINE SCREEN NEGATIVE (NEGATIVE); PHENCYCLIDINE URINE SCREEN NEGATIVE (NEGATIVE)
[2019-01-25 12:33] LABS: *AMPHETAMINES SCREEN URINE PRESUMTIVE POSITIVE (NEGATIVE); *COCAINE SCREEN URINE PRESUMTIVE POSITIVE (NEGATIVE); CANNABINOID URINE SCREEN NEGATIVE (NEGATIVE)
[2019-01-25] MEDS ORDERED: MIDAZOLAM HCL 50 MG in DEXTROSE 5% WATER 40 ML IV NR (13:00)
[2019-01-25] MEDS ORDERED: IPRATROPIUM/ALBUTEROL 0.5-3(2.5)MG/3ML NEB INH PRN (13:30)
[2019-01-25] MEDS ORDERED: ONDANSETRON HCL 4MG/2ML INJ IV PRN (13:30)
[2019-01-25] MEDS ORDERED: LORAZEPAM 2MG/ML CPJ IV PRN (13:30)
[2019-01-25] MEDS ORDERED: ALBUTEROL (0.083%) 2.5MG/3ML NEB HHN ONE (15:30)
[2019-01-25] MEDS ORDERED: ENOXAPARIN 40MG/0.4ML SYR SUBCUT SCH (16:00)
[2019-01-25] MEDS ORDERED: PIPERACILLIN/TAZ 3.375G PREMIX 50 ML IV SCH (17:00)
[2019-01-25] MEDS ORDERED: MIDAZOLAM HCL 50 MG in DEXTROSE 5% WATER 40 ML IV PRN ×2 (17:30→17:45)
[2019-01-25] MEDS ORDERED: POTASSIUM CHLORIDE INJ 40 MEQ in DEXT 5% WATER 250 ML IV SCH (18:00)
[2019-01-25] MEDS: VANCOMYCIN 1 G PREMIX 200 ML IV SCH (18:01)
[2019-01-25] MEDS: LORAZEPAM 2MG/ML CPJ IM PRN ×2 (18:01→22:03)
[2019-01-25] MEDS: LEVETIRACETAM 500 MG in SODIUM CHLORIDE 0.9% 100 ML IV SCH ×2 (18:01→23:13)
[2019-01-25] MEDS: SODIUM CHLORIDE 0.9% 1,000 ML IV SCH (18:03)
[2019-01-25] MEDS: PROPOFOL 10MG/ML 100ML 100 ML IV SCH ×2 (19:05→21:28)
[2019-01-25] MEDS: LEVOFLOXACIN 500MG PREMIX 100 ML IV SCH (19:05)
[2019-01-25] MEDS: METRONIDAZOLE 500 MG PREMIX 100 ML IV SCH (21:11)
[2019-01-25] MEDS: FAMOTIDINE 20MG/2ML VIAL IV SCH (21:11)
[2019-01-25] MEDS: MIDAZOLAM HCL 50 MG in DEXTROSE 5% WATER 40 ML IV PRN (23:05)
[2019-01-26] VITALS (65 sets, daily range): BP systolic 65–149; BP diastolic 34–109
[2019-01-26 00:08] LABS: CREATINE KINASE 260 IU/L (26-192)
[2019-01-26 00:09] LABS: CREATINE KINASE MB FRACTION 1.1 ng/mL (0.5-3.6)
[2019-01-26] MEDS: PROPOFOL 10MG/ML 100ML 100 ML IV SCH ×3 (00:51→06:56)
[2019-01-26] MEDS: LORAZEPAM 2MG/ML CPJ IM PRN ×2 (02:23→08:19)
[2019-01-26] MEDS: MIDAZOLAM HCL 50 MG in DEXTROSE 5% WATER 40 ML IV PRN ×2 (03:52→09:30)
[2019-01-26] MEDS: VANCOMYCIN 1 G PREMIX 200 ML IV SCH ×3 (04:04→22:04)
[2019-01-26] MEDS: SODIUM CHLORIDE 0.9% 1,000 ML IV SCH ×3 (05:34→19:08)
[2019-01-26] MEDS: METRONIDAZOLE 500 MG PREMIX 100 ML IV SCH ×3 (05:35→21:00)
[2019-01-26 05:41] LABS: BASOPHILS % 0.2 % (0.0-2.0); EOSINOPHILS % 0.3 % (0.0-5.0); HEMATOCRIT. 31.8 % (36.0-48.0); HEMOGLOBIN. 10.8 g/dL (12.0-16.0); LYMPHOCYTES % 9.7 % (20.0-50.0); MEAN CORPUSCULAR HEMOGLOBIN 31.6 pg (28.0-32.0); MEAN CORPUSCULAR VOLUME 92.9 fL (81.0-99.0); MEAN PLATELET VOLUME 7.2 fl (7.4-10.4); MONOCYTES % 8.2 % (2.0-8.0); NEUTROPHILS % 81.6 % (40.0-76.0); PLATELET 207 x1000/uL (130-400); RED BLOOD CELL COUNT 3.42 mill/uL (4.2-5.4); RED CELL DISTRIBUTION WIDTH 15.2 % (11.6-14.6)
[2019-01-26 05:57] LABS: CHLORIDE 108 mEq/L (98-107)
[2019-01-26 06:05] LABS: HDL CHOLESTEROL 129 mg/dL (40-59); LDL CHOLESTEROL 47 mg/dL (5-100)
[2019-01-26] MEDS: FAMOTIDINE 20MG/2ML VIAL IV SCH (08:18)
[2019-01-26] MEDS: LEVETIRACETAM 500 MG in SODIUM CHLORIDE 0.9% 100 ML IV SCH (08:19)
[2019-01-26 08:39] LABS: BG BASE EXCESS 1.6 mmol/L (-2.0-2.0); BG CARBOXYHEMOGLOBIN 0.3 % (0.5-1.5); BG DEOXYHEMOGLOBIN 1.3 % (0.0-5.0); BG FRACTION INSPIRED OXYGEN 35; BG HCO3 ACT 24.6 mmol/L (22.0-26.0); BG METHEMOGLOBIN 0.1 % (0.0-1.5); BG OXYGEN SATURATION 98.7 % (92.0-98.5); BG OXYHEMOGLOBIN 98.3 % (94.0-97.0); BG PCO2 32.9 mmHg (35.0-45.0); BG PH 7.491 (7.350-7.450); BG PO2 158.6 mmHg (75.0-100.0); BG SAMPLE SITE RIGHT BRACHIAL; BG TIDAL VOLUME(mL) 450 mL; BG TOTAL HEMOGLOBIN 11.3 g/dL (12.0-18.0); BG VENT MODE VENT - A/C; BG VENT RATE 14 set
[2019-01-26] MEDS ORDERED: FAMOTIDINE 20MG/2ML VIAL IV SCH (09:00)
[2019-01-26] MEDS: HYDROMORPHONE HCL/PF 2MG/ML CPJ IV PRN ×2 (10:50→21:01)
[2019-01-26] MEDS ORDERED: POTASSIUM CHLORIDE INJ 40 MEQ in DEXT 5% WATER 250 ML IV ONE (11:00)
[2019-01-26 11:53] LABS: BG BASE EXCESS -1.4 mmol/L (-2.0-2.0); BG CARBOXYHEMOGLOBIN 0.2 % (0.5-1.5); BG DEOXYHEMOGLOBIN 2.7 % (0.0-5.0); BG FRACTION INSPIRED OXYGEN 35; BG HCO3 ACT 23.7 mmol/L (22.0-26.0); BG METHEMOGLOBIN 0.4 % (0.0-1.5); BG OXYGEN SATURATION 97.3 % (92.0-98.5); BG OXYHEMOGLOBIN 96.7 % (94.0-97.0); BG PCO2 41.1 mmHg (35.0-45.0); BG PH 7.378 (7.350-7.450); BG PO2 102.5 mmHg (75.0-100.0); BG PRESSURE SUPPORT 8; BG SAMPLE SITE LEFT BRACHIAL; BG TOTAL HEMOGLOBIN 11.7 g/dL (12.0-18.0); BG VENT MODE VENT - CPAP
[2019-01-26] MEDS: MESALAMINE 400 MG CAPSULE.DR PO SCH ×2 (14:03→17:33)
[2019-01-26] MEDS ORDERED: NON FORMULARY PATIENT HOME MED XX SCH (14:30)
[2019-01-26] MEDS: HYDROCODONE/ACETAMINOPHEN 5/325MG TABLET PO PRN (15:36)
[2019-01-26] MEDS: LEVOFLOXACIN 500MG PREMIX 100 ML IV SCH (17:33)
[2019-01-26] MEDS: PANTOPRAZOLE SODIUM 40 MG/VIAL IV SCH (21:02)
[2019-01-26] MEDS: LEVETIRACETAM 500MG in SODIUM CHLORIDE 0.9% 100ML IV SCH (22:49)
[2019-01-27] VITALS (24 sets, daily range): BP systolic 94–149; BP diastolic 51–91
[2019-01-27] MEDS: SODIUM CHLORIDE 0.9% 1,000 ML IV SCH (02:35)
[2019-01-27] MEDS: LORAZEPAM 2MG/ML CPJ IM PRN ×2 (02:55→16:53)
[2019-01-27] MEDS: METRONIDAZOLE 500 MG PREMIX 100 ML IV SCH ×3 (05:23→21:09)
[2019-01-27] MEDS: HYDROMORPHONE HCL/PF 2MG/ML CPJ IV PRN ×3 (05:30→19:42)
[2019-01-27] MEDS: VANCOMYCIN 1 G PREMIX 200 ML IV SCH (06:34)
[2019-01-27 09:10] LABS: BASOPHILS % 0.3 % (0.0-2.0); EOSINOPHILS % 1.8 % (0.0-5.0); HEMATOCRIT. 35.5 % (36.0-48.0); HEMOGLOBIN. 11.9 g/dL (12.0-16.0); LYMPHOCYTES % 14.4 % (20.0-50.0); MEAN CORPUSCULAR HEMOGLOBIN 31.4 pg (28.0-32.0); MEAN CORPUSCULAR VOLUME 93.6 fL (81.0-99.0); MEAN PLATELET VOLUME 8.3 fl (7.4-10.4); NEUTROPHILS % 77.5 % (40.0-76.0); PLATELET 106 x1000/uL (130-400); RED BLOOD CELL COUNT 3.79 mill/uL (4.2-5.4); RED CELL DISTRIBUTION WIDTH 15.1 % (11.6-14.6)
[2019-01-27] MEDS: MESALAMINE 400 MG CAPSULE.DR PO SCH ×3 (09:55→18:54)
[2019-01-27] MEDS: PANTOPRAZOLE SODIUM 40 MG/VIAL IV SCH (09:55)
[2019-01-27] MEDS: HYDROCODONE/ACETAMINOPHEN 5/325MG TABLET PO PRN ×2 (09:56→17:42)
[2019-01-27 10:13] LABS: CHLORIDE 111 mEq/L (98-107)
[2019-01-27] MEDS ORDERED: POTASSIUM CHLORIDE 20MEQ/PACKET PO NR (10:45)
[2019-01-27] MEDS: LEVETIRACETAM 500MG in SODIUM CHLORIDE 0.9% 100ML IV SCH ×2 (10:57→20:50)
[2019-01-27] MEDS ORDERED: DIATR MEGLU/DIATRIZOATE SOLN 30ML PO SCH (11:15)
[2019-01-27] MEDS ORDERED: DIATR MEGLU/DIATRIZOATE SOLN 30ML PO NR (11:15)
[2019-01-27] MEDS ORDERED: THROAT LOZENGES-BENZOCAINE/MENTH/CETYLPYRD CL LOZENGES MM PRN (13:00)
[2019-01-27] MEDS: DEXT 5%/0.9% NACL 1,000 ML IV SCH ×2 (15:54→20:00)
[2019-01-27] MEDS ORDERED: LEVETIRACETAM 500MG TABLET PO SCH (17:00)
[2019-01-27] MEDS: VANCOMYCIN 1500MG in DEXTROSE 5% WATER 250ML IV SCH (18:22)
[2019-01-27] MEDS: LEVOFLOXACIN 500MG PREMIX 100 ML IV SCH (20:23)
[2019-01-27] MEDS: DIPHENHYDRAMINE 50MG/ML VIAL IV PRN (20:24)
[2019-01-28] VITALS: BP 107/72
[2019-01-28] MEDS: VANCOMYCIN 1500MG in DEXTROSE 5% WATER 250ML IV SCH ×4 (00:30→21:14)
[2019-01-28] MEDS: PANTOPRAZOLE SODIUM 40 MG/VIAL IV SCH ×3 (00:30→21:35)
[2019-01-28] MEDS: LORAZEPAM 2MG/ML CPJ IM PRN ×4 (00:42→17:58)
[2019-01-28] MEDS: HYDROMORPHONE HCL/PF 2MG/ML CPJ IV PRN ×4 (01:38→20:41)
[2019-01-28] MEDS: DIPHENHYDRAMINE 50MG/ML VIAL IV PRN ×4 (02:12→21:01)
[2019-01-28 04:00] VITALS: BP 103/64
[2019-01-28] MEDS: METRONIDAZOLE 500 MG PREMIX 100 ML IV SCH ×3 (05:54→21:14)
[2019-01-28 08:00] VITALS: BP 108/70
[2019-01-28] MEDS: LEVETIRACETAM 500MG in SODIUM CHLORIDE 0.9% 100ML IV SCH ×2 (08:34→20:41)
[2019-01-28 09:30] LABS: BASOPHILS % 0.1 % (0.0-2.0); EOSINOPHILS % 1.5 % (0.0-5.0); HEMATOCRIT. 34.6 % (36.0-48.0); HEMOGLOBIN. 11.5 g/dL (12.0-16.0); LYMPHOCYTES % 20.6 % (20.0-50.0); MEAN CORPUSCULAR VOLUME 93.3 fL (81.0-99.0); MEAN PLATELET VOLUME 7.8 fl (7.4-10.4); NEUTROPHILS % 70.8 % (40.0-76.0); PLATELET 199 x1000/uL (130-400); RED BLOOD CELL COUNT 3.71 mill/uL (4.2-5.4); RED CELL DISTRIBUTION WIDTH 15.4 % (11.6-14.6)
[2019-01-28] MEDS: MESALAMINE 400 MG CAPSULE.DR PO SCH ×3 (09:30→17:08)
[2019-01-28 09:34] LABS: CHLORIDE 110 mEq/L (98-107)
[2019-01-28] MEDS: DEXT 5%/0.9% NACL 1,000 ML IV SCH ×2 (10:21→12:00)
[2019-01-28] MEDS: HYDROCODONE/ACETAMINOPHEN 5/325MG TABLET PO PRN ×2 (10:37→17:11)
[2019-01-28 16:00] VITALS: BP 100/66
[2019-01-28 20:00] VITALS: BP 108/65
[2019-01-28] MEDS: LEVOFLOXACIN 500MG PREMIX 100 ML IV SCH (20:41)
[2019-01-29] VITALS: BP 100/60
[2019-01-29] MEDS: HYDROMORPHONE HCL/PF 2MG/ML CPJ IV PRN ×3 (00:34→08:37)
[2019-01-29] MEDS: LORAZEPAM 2MG/ML CPJ IM PRN ×2 (02:01→10:15)
[2019-01-29] MEDS: DIPHENHYDRAMINE 50MG/ML VIAL IV PRN ×2 (02:38→09:49)
[2019-01-29] MEDS: DEXT 5%/0.9% NACL 1,000 ML IV SCH ×2 (02:38→04:00)
[2019-01-29 04:00] VITALS: BP 95/55
[2019-01-29] MEDS: VANCOMYCIN 1500MG in DEXTROSE 5% WATER 250ML IV SCH (05:38)
[2019-01-29] MEDS: METRONIDAZOLE 500 MG PREMIX 100 ML IV SCH ×2 (05:38→05:59)
[2019-01-29 07:00] LABS: EOSINOPHILS % 1.5 % (0.0-5.0); HEMATOCRIT. 35.8 % (36.0-48.0); HEMOGLOBIN. 11.9 g/dL (12.0-16.0); LYMPHOCYTES % 24.6 % (20.0-50.0); MEAN PLATELET VOLUME 7.8 fl (7.4-10.4); MONOCYTES % 7.8 % (2.0-8.0); NEUTROPHILS % 66.1 % (40.0-76.0); PLATELET 214 x1000/uL (130-400); RED BLOOD CELL COUNT 3.84 mill/uL (4.2-5.4)
[2019-01-29 07:29] LABS: CHLORIDE 105 mEq/L (98-107)
[2019-01-29 08:00] VITALS: BP 96/64
[2019-01-29] MEDS: MESALAMINE 400 MG CAPSULE.DR PO SCH (08:37)
[2019-01-29] MEDS: PANTOPRAZOLE SODIUM 40 MG/VIAL IV SCH ×2 (09:00→21:00)
[2019-01-29] MEDS: LEVETIRACETAM 500MG in SODIUM CHLORIDE 0.9% 100ML IV SCH ×2 (10:24→21:00)
[2019-01-29] MEDS: HYDROCODONE/ACETAMINOPHEN 5/325MG TABLET PO PRN ×2 (11:06→17:33)
[2019-01-29 12:00] VITALS: BP 100/64
[2019-01-29] MEDS ORDERED: OXYBUTYNIN CHLORIDE 5MG TABLET PO SCH (13:30)
[2019-01-29] MEDS ORDERED: GABAPENTIN 300MG CAPSULE PO SCH (14:00)
[2019-01-29] MEDS: GABAPENTIN 400MG CAPSULE PO SCH ×2 (15:15→23:00)
[2019-01-29 15:25] VITALS: BP 100/64
[2019-01-29] MEDS ORDERED: DICYCLOMINE HCL 20MG TABLET PO SCH (18:00)
[2019-01-30 01:35] VITALS: BP 101/41
[2019-01-30 01:48] VITALS: BP 121/84
[2019-01-30] MEDS: HYDROCODONE/ACETAMINOPHEN 5/325MG TABLET PO PRN (01:48)
== END 2019-01-30 03:30 | DRG 53 ==
LOC: ER 09:10 → EDBEDREQ 10:28 → CVICU 12:28 → EDBEDREQ 12:46 → ENRESERV 13:58 → CVICU 01-27 03:28 → 7WST 01-27 13:16
PROVIDERS: ADMIT Internal Medicine; ATTEND Internal Medicine
PROC: 5A1945Z Respiratory Ventilation, 24-96 Consecutive Hours (ICD-10-PCS; principal; 2019-01-25)
PROC: 0BH17EZ Insertion of Endotracheal Airway into Trachea, Via Natural or Artificial Opening (ICD-10-PCS; 2019-01-25)
PROC: 4A00X4Z Measurement of Central Nervous Electrical Activity, External Approach (ICD-10-PCS; 2019-01-28)
PROC: 2W3KX1Z Immobilization of Left Finger using Splint (ICD-10-PCS; 2019-01-29)
DX: G40.901 Epilepsy, unspecified, not intractable, with status epilepticus (principal); J96.00 Acute respiratory failure, unspecified whether with hypoxia or hypercapnia; Z99.11 Dependence on respirator [ventilator] status; E87.2 Acidosis; K50.90 Crohn's disease, unspecified, without complications; I11.0 Hypertensive heart disease with heart failure; I50.42 Chronic combined systolic (congestive) and diastolic (congestive) heart failure; K92.2 Gastrointestinal hemorrhage, unspecified; E87.6 Hypokalemia; F14.10 Cocaine abuse, uncomplicated; S62.625A Displaced fracture of middle phalanx of left ring finger, initial encounter for closed fracture; X58.XXXA Exposure to other specified factors, initial encounter; F15.10 Other stimulant abuse, uncomplicated; D64.9 Anemia, unspecified; Z88.9 Allergy status to unspecified drugs, medicaments and biological substances; Z88.5 Allergy status to narcotic agent; Z85.89 Personal history of malignant neoplasm of other organs and systems; Z87.01 Personal history of pneumonia (recurrent); Z90.49 Acquired absence of other specified parts of digestive tract; Z98.891 History of uterine scar from previous surgery; Y93.89 Activity, other specified; Y92.89 Other specified places as the place of occurrence of the external cause; Y99.8 Other external cause status; Z91.5 Personal history of self-harm
CPT/HCPCS: 36415; 36600; 70551; 71045; 73130; 74176; 80048; 80061; 80156; 80165; 80184; 80185; 80202; 80305; 80307; 80320; 80329; 82140; 82375; 82550; 82553; 82805; 82962; 83605; 83880; 84443; 84484; 84703; 87070; 92610; 93005; 93970; 93971; 94002; 94003; 94640; 96374; 99285; C9113; J1170; J1200; J1650; J1953; J1956; J2060; J2250; J2543; J2704; J3370; J3480; J3490; J7030; J7042; J7050; J7060; J7620; Q9963; G0480

== ENCOUNTER 2019-02-13 02:02 | Emergency (ER) | payer MEDICAID ==
[~2019-02-13] VITALS: Ht 167.6 cm; Wt 64.0 kg
[~2019-02-13 02:02] MED LIST changes: -HYDR2TAB4 PO
[2019-02-13] MEDS ORDERED: SODIUM CHLORIDE 0.9% 1,000 ML IV ONE (03:00)
[2019-02-13] MEDS ORDERED: DIPHENHYDRAMINE 50MG/ML VIAL IV ONE (03:00)
[2019-02-13] MEDS ORDERED: ONDANSETRON HCL 4MG/2ML INJ IV ONE (03:00)
[2019-02-13] MEDS ORDERED: MORPHINE SULFATE 4 MG/ML CPJ (NOT FOR IM USE) IV ONE (03:00)
[2019-02-13 03:06] LABS: CLARITY URINE TURBID (CLEAR); COLOR URINE YELLOW (YELLOW); KETONES URINE 1+ (NEGATIVE); LEUKOCYTE ESTERASE URINE 1+ (NEGATIVE); NITRITE URINE NEGATIVE (NEGATIVE); OCCULT BLOOD URINE NEGATIVE (NEGATIVE); PH URINE 5.5 (4.5-8.0); PROTEIN URINE NEGATIVE (NEGATIVE); SPECIFIC GRAVITY URINE 1.016 (1.005-1.030); UROBILINOGEN URINE 0.2 E.U./dL (0.2-1.0)
[2019-02-13 03:19] LABS: *BARBITURATES SCREEN URINE NEGATIVE (NEGATIVE); *BENZODIAZEPINES SCREEN URINE NEGATIVE (NEGATIVE); CANNABINOID URINE SCREEN NEGATIVE (NEGATIVE)
[2019-02-13 03:20] LABS: METHADONE URINE SCREEN NEGATIVE (NEGATIVE); OPIATES URINE SCREEN NEGATIVE (NEGATIVE); PHENCYCLIDINE URINE SCREEN NEGATIVE (NEGATIVE)
[2019-02-13 03:24] LABS: *AMPHETAMINES SCREEN URINE PRESUMTIVE POSITIVE (NEGATIVE); *COCAINE SCREEN URINE PRESUMTIVE POSITIVE (NEGATIVE)
[2019-02-13 03:24] LABS: CHLORIDE 104 mEq/L (98-107)
[2019-02-13 03:28] LABS: ETHANOL BLOOD < 10 mg/dL
[2019-02-13 03:31] LABS: BASOPHILS % 0.8 % (0.0-2.0); EOSINOPHILS % 0.3 % (0.0-5.0); HEMATOCRIT. 36.7 % (36.0-48.0); HEMOGLOBIN. 12.3 g/dL (12.0-16.0); MEAN CORPUSCULAR HEMOGLOBIN 30.1 pg (28.0-32.0); MEAN CORPUSCULAR VOLUME 89.8 fL (81.0-99.0); MEAN PLATELET VOLUME 7.5 fl (7.4-10.4); MONOCYTES % 10.9 % (2.0-8.0); PLATELET 319 x1000/uL (130-400); RED BLOOD CELL COUNT 4.09 mill/uL (4.2-5.4)
[2019-02-13 03:34] LABS: HCG SCREEN NEGATIVE
[2019-02-13] MEDS ORDERED: LORAZEPAM 2MG/ML CPJ IV ONE (05:00)
[2019-02-13] MEDS ORDERED: LORAZEPAM 0.5MG TABLET PO ONE (07:30)
[2019-02-13] MEDS ORDERED: LEVETIRACETAM 500MG TABLET PO ONE (13:30)
[2019-02-13] MEDS ORDERED: LORAZEPAM 1MG TABLET PO ONE (16:30)
[2019-02-13] MEDS ORDERED: ACETAMINOPHEN 325MG TABLET PO ONE (18:15)
[2019-02-14] MEDS ORDERED: ACETAMINOPHEN 325MG TABLET PO NR (03:00)
[2019-02-14] MEDS ORDERED: ACETAMINOPHEN 325MG TABLET PO ONE (09:00)
[2019-02-14 09:15] VITALS: BP 115/68
== END 2019-02-14 09:40 | disposition home or self-care (01) ==
LOC: ER 02:02
DX: R10.9 Unspecified abdominal pain (principal); N39.0 Urinary tract infection, site not specified; K50.90 Crohn's disease, unspecified, without complications; R56.9 Unspecified convulsions; F17.210 Nicotine dependence, cigarettes, uncomplicated; Z88.3 Allergy status to other anti-infective agents; Z88.5 Allergy status to narcotic agent; Z88.6 Allergy status to analgesic agent; Z88.8 Allergy status to other drugs, medicaments and biological substances; Z90.710 Acquired absence of both cervix and uterus
CPT/HCPCS: 36415; 71045; 80053; 80305; 80320; 81003; 83605; 83690; 84703; 85025; 85610; 96361; 96374; 96375; 99284; C1893; J1200; J2060; J2270; J2405; G0480

== ENCOUNTER 2019-02-27 05:57 | Emergency (ER) | payer MEDICAID ==
[~2019-02-27] VITALS: Ht 162.6 cm; Wt 50.0 kg
[2019-02-27 07:08] LABS: BASOPHILS % 0.6 % (0.0-2.0); EOSINOPHILS % 0.1 % (0.0-5.0); HEMATOCRIT. 38.3 % (36.0-48.0); LYMPHOCYTES % 18.6 % (20.0-50.0); MEAN CORPUSCULAR HEMOGLOBIN 29.9 pg (28.0-32.0); MEAN CORPUSCULAR VOLUME 87.9 fL (81.0-99.0); MEAN PLATELET VOLUME 7.9 fl (7.4-10.4); NEUTROPHILS % 76.7 % (40.0-76.0); PLATELET 318 x1000/uL (130-400); RED BLOOD CELL COUNT 4.36 mill/uL (4.2-5.4); RED CELL DISTRIBUTION WIDTH 15.4 % (11.6-14.6)
[2019-02-27 07:13] LABS: CHLORIDE 100 mEq/L (98-107)
[2019-02-27 07:16] LABS: ETHANOL BLOOD < 10 mg/dL
[2019-02-27 08:17] LABS: HCG SCREEN NEGATIVE
[2019-02-27] MEDS ORDERED: ACETAMINOPHEN 325MG TABLET PO ONE (08:45)
[2019-02-27] MEDS ORDERED: SODIUM CHLORIDE 0.9% 1,000 ML IV ONE (08:48)
[2019-02-27 10:30] VITALS: BP 122/81
== END 2019-02-27 10:33 | disposition home or self-care (01) ==
LOC: ER 05:57
DX: F15.10 Other stimulant abuse, uncomplicated (principal); R10.9 Unspecified abdominal pain; Z88.1 Allergy status to other antibiotic agents; Z88.5 Allergy status to narcotic agent; Z88.6 Allergy status to analgesic agent; Z88.8 Allergy status to other drugs, medicaments and biological substances; Z79.899 Other long term (current) drug therapy
CPT/HCPCS: 36415; 74176; 80053; 80320; 84703; 85025; 99284; J7030; G0480

== ENCOUNTER 2019-02-27 14:41 | Emergency (ER) | payer MEDICAID ==
[~2019-02-27] VITALS: Ht 167.6 cm; Wt 59.0 kg
[2019-02-27 16:45] LABS: CHLORIDE 103 mEq/L (98-107)
[2019-02-27 16:50] LABS: ETHANOL BLOOD < 10 mg/dL
[2019-02-27 17:15] LABS: CLARITY URINE CLEAR (CLEAR); COLOR URINE YELLOW (YELLOW); KETONES URINE 3+ (NEGATIVE); LEUKOCYTE ESTERASE URINE 1+ (NEGATIVE); NITRITE URINE NEGATIVE (NEGATIVE); OCCULT BLOOD URINE 3+ (NEGATIVE); PROTEIN URINE NEGATIVE (NEGATIVE); SPECIFIC GRAVITY URINE 1.014 (1.005-1.030)
[2019-02-27 17:18] LABS: BASOPHILS % 0.7 % (0.0-2.0); EOSINOPHILS % 0.6 % (0.0-5.0); HEMATOCRIT. 41.8 % (36.0-48.0); HEMOGLOBIN. 13.9 g/dL (12.0-16.0); LYMPHOCYTES % 30.5 % (20.0-50.0); MEAN CORPUSCULAR HEMOGLOBIN 29.9 pg (28.0-32.0); MEAN CORPUSCULAR VOLUME 89.9 fL (81.0-99.0); MEAN PLATELET VOLUME 7.8 fl (7.4-10.4); NEUTROPHILS % 58.2 % (40.0-76.0); PLATELET 272 x1000/uL (130-400); RED BLOOD CELL COUNT 4.65 mill/uL (4.2-5.4); RED CELL DISTRIBUTION WIDTH 15.2 % (11.6-14.6)
[2019-02-27 17:27] LABS: *BARBITURATES SCREEN URINE NEGATIVE (NEGATIVE); *BENZODIAZEPINES SCREEN URINE NEGATIVE (NEGATIVE); *COCAINE SCREEN URINE NEGATIVE (NEGATIVE); METHADONE URINE SCREEN NEGATIVE (NEGATIVE)
[2019-02-27 17:28] LABS: CANNABINOID URINE SCREEN NEGATIVE (NEGATIVE); OPIATES URINE SCREEN NEGATIVE (NEGATIVE); PHENCYCLIDINE URINE SCREEN NEGATIVE (NEGATIVE)
[2019-02-27 17:30] LABS: *AMPHETAMINES SCREEN URINE PRESUMTIVE POSITIVE (NEGATIVE)
[2019-02-27] MEDS ORDERED: OLANZAPINE 5MG TABLET ODT PO ONE (19:30)
[2019-02-27] MEDS ORDERED: NITROFURANTOIN 100MG M/M CAPSULE PO ONE (19:30)
[2019-02-27] MEDS ORDERED: OLANZAPINE 10 MG/VIAL IM ONE (20:45)
[2019-02-28] MEDS ORDERED: LORAZEPAM 1MG TABLET PO ONE ×2 (09:45→20:15)
[2019-02-28] MEDS ORDERED: OLANZAPINE 5MG TABLET ODT PO ONE (20:15)
[2019-03-01] MEDS ORDERED: OLANZAPINE 2.5MG TABLET PO SCH (13:00)
[2019-03-01] MEDS ORDERED: LORAZEPAM 1MG TABLET PO ONE (13:00)
[2019-03-01] MEDS: OLANZAPINE 5MG TABLET ODT PO SCH ×2 (13:49→13:50)
[2019-03-01] MEDS ORDERED: NITROFURANTOIN 100MG M/M CAPSULE PO ONE (21:45)
[2019-03-01] MEDS ORDERED: OLANZAPINE 5MG TABLET ODT PO ONE (22:00)
[2019-03-02] MEDS ORDERED: NITROFURANTOIN 100MG M/M CAPSULE PO SCH (09:00)
[2019-03-02 14:21] VITALS: BP 104/67
== END 2019-03-02 15:30 | disposition home or self-care (01) ==
LOC: ER 14:41
DX: T43.622A Poisoning by amphetamines, intentional self-harm, initial encounter (principal); F15.10 Other stimulant abuse, uncomplicated; R45.851 Suicidal ideations; F17.200 Nicotine dependence, unspecified, uncomplicated; G40.909 Epilepsy, unspecified, not intractable, without status epilepticus; Z59.0 Homelessness; Z75.1 Person awaiting admission to adequate facility elsewhere; Z79.899 Other long term (current) drug therapy; Z88.1 Allergy status to other antibiotic agents; Z88.5 Allergy status to narcotic agent; Z88.6 Allergy status to analgesic agent; Y92.89 Other specified places as the place of occurrence of the external cause
CPT/HCPCS: 80305; 80307; 80320; 81025; 99284; G0480

== ENCOUNTER 2019-04-16 16:22 | Inpatient (IN) | payer MEDICAID ==
[~2019-04-16] VITALS: Ht 170.2 cm; Wt 62.1 kg
[2019-04-16] MEDS ORDERED: MORPHINE SULFATE 4 MG/ML CPJ (NOT FOR IM USE) IV STA (17:29)
[2019-04-16] MEDS ORDERED: SODIUM CHLORIDE 0.9% 1,000 ML IV ONE (17:29)
[2019-04-16] MEDS ORDERED: ONDANSETRON HCL 4MG/2ML INJ IV STA (17:29)
[2019-04-16] MEDS ORDERED: FAMOTIDINE 20MG/2ML VIAL IV ONE (17:30)
[2019-04-16] MEDS ORDERED: DIPHENHYDRAMINE 50MG/ML VIAL IV ONE (17:30)
[2019-04-16 18:40] LABS: BASOPHILS % 0.3 % (0.0-2.0); EOSINOPHILS % 0.2 % (0.0-5.0); HEMATOCRIT. 35.7 % (36.0-48.0); HEMOGLOBIN. 11.9 g/dL (12.0-16.0); LYMPHOCYTES % 32.8 % (20.0-50.0); MEAN CORPUSCULAR HEMOGLOBIN 28.8 pg (28.0-32.0); MEAN CORPUSCULAR VOLUME 86.5 fL (81.0-99.0); MEAN PLATELET VOLUME 8.3 fl (7.4-10.4); MONOCYTES % 9.2 % (2.0-8.0); NEUTROPHILS % 57.5 % (40.0-76.0); PLATELET 218 x1000/uL (130-400); RED BLOOD CELL COUNT 4.13 mill/uL (4.2-5.4); RED CELL DISTRIBUTION WIDTH 17.5 % (11.6-14.6)
[2019-04-16 18:53] LABS: HCG SCREEN NEGATIVE
[2019-04-16 19:30] LABS: CLARITY URINE TURBID (CLEAR); COLOR URINE YELLOW (YELLOW); KETONES URINE 1+ (NEGATIVE); LEUKOCYTE ESTERASE URINE TRACE (NEGATIVE); NITRITE URINE NEGATIVE (NEGATIVE); OCCULT BLOOD URINE NEGATIVE (NEGATIVE); PROTEIN URINE NEGATIVE (NEGATIVE); SPECIFIC GRAVITY URINE 1.015 (1.005-1.030); UROBILINOGEN URINE 0.2 E.U./dL (0.2-1.0)
[2019-04-16 19:42] LABS: *AMPHETAMINES SCREEN URINE NEGATIVE (NEGATIVE); *BARBITURATES SCREEN URINE NEGATIVE (NEGATIVE); *BENZODIAZEPINES SCREEN URINE NEGATIVE (NEGATIVE)
[2019-04-16 19:43] LABS: CANNABINOID URINE SCREEN NEGATIVE (NEGATIVE); METHADONE URINE SCREEN NEGATIVE (NEGATIVE); OPIATES URINE SCREEN NEGATIVE (NEGATIVE); PHENCYCLIDINE URINE SCREEN NEGATIVE (NEGATIVE)
[2019-04-16] MEDS ORDERED: LORAZEPAM 2MG/ML CPJ IV ONE (20:00)
[2019-04-16 20:03] LABS: *COCAINE SCREEN URINE PRESUMTIVE POSITIVE (NEGATIVE)
[2019-04-16] MEDS ORDERED: METRONIDAZOLE 500 MG PREMIX 100 ML IV ONE (20:15)
[2019-04-16] MEDS ORDERED: LEVOFLOXACIN 500MG PREMIX 100 ML IV ONE (20:15)
[2019-04-16 21:15] LABS: CHLORIDE 109 mEq/L (98-107)
[2019-04-16 21:19] LABS: ETHANOL BLOOD < 10 mg/dL
[2019-04-16 22:25] VITALS: BP 133/94
[2019-04-16 22:30] VITALS: BP 133/94
[2019-04-17] MEDS: HYDROMORPHONE HCL/PF 2MG/ML CPJ IV PRN ×4 (00:52→13:20)
[2019-04-17] MEDS ORDERED: B50 MT (01:54)
[2019-04-17] MEDS ORDERED: BENJ PO (01:54)
[2019-04-17] MEDS ORDERED: MESA1.2T3 PO (01:54)
[2019-04-17] MEDS ORDERED: HYDR2TAB4 PO (01:54)
[2019-04-17] MEDS ORDERED: P20 PO (01:54)
[2019-04-17] MEDS ORDERED: LORA2TAB95 PO (01:54)
[2019-04-17] MEDS ORDERED: LEVE750T4 PO (01:54)
[2019-04-17] MEDS ORDERED: GABA800T97 PO (01:54)
[2019-04-17] MEDS: LORAZEPAM 1MG TABLET PO PRN ×3 (02:58→16:14)
[2019-04-17 04:00] VITALS: BP 120/85
[2019-04-17 08:00] VITALS: BP 116/70
[2019-04-17] MEDS: GABAPENTIN 400MG CAPSULE PO SCH ×2 (08:31→16:14)
[2019-04-17] MEDS: PREDNISONE 20MG TABLET PO SCH (08:32)
[2019-04-17] MEDS: LEVETIRACETAM 500MG TABLET PO SCH ×2 (08:32→20:55)
[2019-04-17] MEDS ORDERED: MESALAMINE 250MG CAPSULE EXTENDED RELEASE PO SCH ×2 (09:00→13:00)
[2019-04-17] MEDS ORDERED: DIPHENHYDRAMINE 50MG CAPSULE PO PRN ×2 (09:30)
[2019-04-17] MEDS ORDERED: ONDANSETRON HCL 4MG/2ML INJ IV PRN (09:30)
[2019-04-17 12:00] VITALS: BP 117/72
[2019-04-17] MEDS ORDERED: MORPHINE SULFATE 2 MG/ML CPJ (NOT FOR IM USE) IV PRN (14:15)
[2019-04-17 16:00] VITALS: BP 115/75
[2019-04-17] MEDS: MESALAMINE 400 MG CAPSULE.DR PO SCH (16:14)
[2019-04-17 16:59] LABS: BASOPHILS % 0.2 % (0.0-2.0); HEMATOCRIT. 35.8 % (36.0-48.0); LYMPHOCYTES % 9.1 % (20.0-50.0); MEAN CORPUSCULAR HEMOGLOBIN 28.9 pg (28.0-32.0); MEAN CORPUSCULAR VOLUME 86.2 fL (81.0-99.0); MEAN PLATELET VOLUME 8.3 fl (7.4-10.4); MONOCYTES % 2.2 % (2.0-8.0); NEUTROPHILS % 88.5 % (40.0-76.0); PLATELET 226 x1000/uL (130-400); RED BLOOD CELL COUNT 4.16 mill/uL (4.2-5.4); RED CELL DISTRIBUTION WIDTH 16.5 % (11.6-14.6)
[2019-04-17 17:37] LABS: HEPATITIS B SURFACE ANTIGEN NEGATIVE
[2019-04-17 18:07] LABS: HEPATITIS A AB IGM NEGATIVE (NEGATIVE)
[2019-04-17] MEDS ORDERED: DIPHENHYDRAMINE 50MG/ML VIAL IV PRN (18:30)
[2019-04-17 20:00] VITALS: BP 112/64
[2019-04-18] VITALS: BP 113/73
[2019-04-18] MEDS: MORPHINE SULFATE 2 MG/ML CPJ (NOT FOR IM USE) IV PRN ×2 (00:08→06:48)
[2019-04-18] MEDS: LORAZEPAM 1MG TABLET PO PRN ×2 (02:19→09:03)
[2019-04-18] MEDS: DIPHENHYDRAMINE 50MG/ML VIAL IV PRN ×2 (03:29→11:30)
[2019-04-18 04:00] VITALS: BP 106/40
[2019-04-18 07:07] LABS: BASOPHILS % 0.2 % (0.0-2.0); EOSINOPHILS % 1.1 % (0.0-5.0); HEMATOCRIT. 33.9 % (36.0-48.0); HEMOGLOBIN. 11.3 g/dL (12.0-16.0); LYMPHOCYTES % 38.2 % (20.0-50.0); MEAN CORPUSCULAR HEMOGLOBIN 29.1 pg (28.0-32.0); MEAN CORPUSCULAR VOLUME 86.8 fL (81.0-99.0); MEAN PLATELET VOLUME 8.4 fl (7.4-10.4); MONOCYTES % 10.2 % (2.0-8.0); NEUTROPHILS % 50.3 % (40.0-76.0); PLATELET 202 x1000/uL (130-400); RED CELL DISTRIBUTION WIDTH 16.8 % (11.6-14.6)
[2019-04-18 07:15] LABS: CHLORIDE 105 mEq/L (98-107)
[2019-04-18 07:33] VITALS: BP 90/50
[2019-04-18] MEDS: GABAPENTIN 400MG CAPSULE PO SCH (08:57)
[2019-04-18] MEDS: PREDNISONE 20MG TABLET PO SCH (08:57)
[2019-04-18] MEDS: MESALAMINE 400 MG CAPSULE.DR PO SCH (08:58)
[2019-04-18] MEDS: LEVETIRACETAM 500MG TABLET PO SCH (08:58)
[2019-04-18 11:31] VITALS: BP 88/63
[2019-04-18 13:08] VITALS: BP 100/50
[2019-04-22 09:12] LABS: SACCHAROMYCES CEREVISIAE IGG 32.8 Units (0.0-24.9); SACCHAROMYCES CEREVISIAE IGM <20.0 Units (0.0-24.9)
[2019-04-22 13:10] LABS: ATYPICAL P-ANCA <1:20 titer (Neg:<1:20); ATYPICAL pANCA <1:20 titer (Neg:<1:20); CYTOPLASMIC C-ANCA <1:20 titer (Neg:<1:20); PERINUCLEAR P-ANCA <1:20 titer (Neg:<1:20)
[2019-04-22 14:13] LABS: ANTI-MYELOPEROXIDASE AB < 9.0 U/mL (0.0-9.0); ANTI-PROTEINASE 3 ABS 8.3 U/mL (0.0-3.5)
== END 2019-04-18 15:00 | disposition home or self-care (01) | DRG 253 ==
LOC: ER 16:22 → 5WST 20:50 → EDBEDREQTM 21:08 → EDBEDREQ 21:08 → ENRESERV 21:26
PROVIDERS: ADMIT Internal Medicine; ATTEND Internal Medicine
DX: K62.5 Hemorrhage of anus and rectum (principal); E87.2 Acidosis; E87.8 Other disorders of electrolyte and fluid balance, not elsewhere classified; K86.89 Other specified diseases of pancreas; E44.1 Mild protein-calorie malnutrition; R10.9 Unspecified abdominal pain; D64.9 Anemia, unspecified; F17.210 Nicotine dependence, cigarettes, uncomplicated; F20.0 Paranoid schizophrenia; F43.10 Post-traumatic stress disorder, unspecified; F14.10 Cocaine abuse, uncomplicated; G40.909 Epilepsy, unspecified, not intractable, without status epilepticus; I50.9 Heart failure, unspecified; K76.0 Fatty (change of) liver, not elsewhere classified; Z59.0 Homelessness; Z90.49 Acquired absence of other specified parts of digestive tract; Z68.21 Body mass index [BMI] 21.0-21.9, adult; Z88.1 Allergy status to other antibiotic agents; Z88.5 Allergy status to narcotic agent; Z88.8 Allergy status to other drugs, medicaments and biological substances; Z98.891 History of uterine scar from previous surgery; Z71.51 Drug abuse counseling and surveillance of drug abuser
CPT/HCPCS: 36415; 74176; 80048; 80305; 80320; 81003; 83520; 83605; 83880; 84484; 84703; 85651; 86140; 86256; 86671; 86705; 86709; 86803; 86850; 86900; 87340; 93306; 96374; 96375; 99285; J1170; J1200; J1956; J2060; J2270; J2405; J3490; J7030; J7512; Q0163; G0480

== ENCOUNTER 2019-05-02 04:44 | Inpatient (IN) | payer MEDICAID ==
[~2019-05-02] VITALS: Ht 170.2 cm; Wt 67.6 kg
[~2019-05-02 04:44] MED LIST changes: +B50 MT; -FURO-151 PO; -GABA-531; +GABA800T97 PO; +HYDR2TAB4 PO; -KEPP500 PO; +LEVE750T4 PO; +LORA2TAB95 PO; -MESA0.37 PO; +MESA1.2T3 PO; -MULT80TA MT; -OXYB5TAB11 PO; +P20 PO; -POTA10CA42 PO; -PRED5TAB48 PO
[2019-05-02] MEDS ORDERED: SODIUM CHLORIDE 0.9% 1,000 ML IV ONE ×2 (05:11→07:15)
[2019-05-02] MEDS ORDERED: ONDANSETRON HCL 4MG/2ML INJ IV STA (05:11)
[2019-05-02 06:05] LABS: BASOPHILS % 0.4 % (0.0-2.0); EOSINOPHILS % 0.1 % (0.0-5.0); HEMATOCRIT. 32.1 % (36.0-48.0); HEMOGLOBIN. 10.9 g/dL (12.0-16.0); LYMPHOCYTES % 19.8 % (20.0-50.0); MEAN CORPUSCULAR HEMOGLOBIN 29.4 pg (28.0-32.0); MEAN CORPUSCULAR VOLUME 86.4 fL (81.0-99.0); MEAN PLATELET VOLUME 7.3 fl (7.4-10.4); MONOCYTES % 7.9 % (2.0-8.0); NEUTROPHILS % 71.8 % (40.0-76.0); PLATELET 265 x1000/uL (130-400); RED BLOOD CELL COUNT 3.71 mill/uL (4.2-5.4); RED CELL DISTRIBUTION WIDTH 17.1 % (11.6-14.6)
[2019-05-02 06:11] LABS: CHLORIDE 113 mEq/L (98-107)
[2019-05-02 06:16] LABS: PROTHROMBIN TIME 10.4 sec (9.6-11.0)
[2019-05-02 08:24] LABS: CLARITY URINE CLEAR (CLEAR); COLOR URINE YELLOW (YELLOW); KETONES URINE TRACE (NEGATIVE); LEUKOCYTE ESTERASE URINE NEGATIVE (NEGATIVE); NITRITE URINE NEGATIVE (NEGATIVE); OCCULT BLOOD URINE NEGATIVE (NEGATIVE); PROTEIN URINE NEGATIVE (NEGATIVE); SPECIFIC GRAVITY URINE 1.012 (1.005-1.030); UROBILINOGEN URINE 0.2 E.U./dL (0.2-1.0)
[2019-05-02] MEDS ORDERED: LORAZEPAM 2MG/ML CPJ ONE (09:09)
[2019-05-02] MEDS ORDERED: LORAZEPAM 2MG/ML CPJ IV ONE ×2 (09:15→11:30)
[2019-05-02] MEDS ORDERED: IOHEXOL-300 100 ML BOTTLE ONE (11:51)
[2019-05-02] MEDS ORDERED: ACETAMINOPHEN 325MG TABLET PO ONE (14:15)
[2019-05-02 16:30] VITALS: BP 106/56
[2019-05-02] MEDS ORDERED: MAGNESIUM/ALUMINUM HYDROXIDE/SIMETHICONE 30ML UDC PO PRN (16:45)
[2019-05-02] MEDS ORDERED: IPRATROPIUM/ALBUTEROL 0.5-3(2.5)MG/3ML NEB HHN PRN (16:45)
[2019-05-02] MEDS ORDERED: ONDANSETRON HCL 4MG/2ML INJ IV PRN (16:45)
[2019-05-02] MEDS ORDERED: DIPHENHYDRAMINE 50MG/ML VIAL IV PRN (16:45)
[2019-05-02] MEDS ORDERED: ACETAMINOPHEN 325MG TABLET PO PRN (16:45)
[2019-05-02] MEDS ORDERED: LEVETIRACETAM 500MG PREMIX 100 ML IV ONE (16:45)
[2019-05-02] MEDS ORDERED: CLONIDINE 0.1MG TABLET PO PRN (16:45)
[2019-05-02] MEDS ORDERED: POTASSIUM CHLORIDE 20MEQ/PACKET PO NR (16:45)
[2019-05-02] MEDS ORDERED: GABAPENTIN 300MG CAPSULE PO SCH (17:00)
[2019-05-02 17:59] VITALS: BP 106/56
[2019-05-02] MEDS ORDERED: LEVETIRACETAM 500MG in SODIUM CHLORIDE 0.9% 100ML IV SCH (18:30)
[2019-05-02] MEDS: GABAPENTIN 400MG CAPSULE PO SCH (18:35)
[2019-05-02] MEDS: ENOXAPARIN 40MG/0.4ML SYR SUBCUT SCH (18:36)
[2019-05-02 20:00] VITALS: BP 115/61
[2019-05-03] VITALS: BP 112/60
[2019-05-03] MEDS: MORPHINE SULFATE 2 MG/ML CPJ (NOT FOR IM USE) IV PRN ×3 (02:45→10:43)
[2019-05-03 04:00] VITALS: BP 107/52
[2019-05-03 10:00] VITALS: BP 104/56
[2019-05-03] MEDS: ENOXAPARIN 40MG/0.4ML SYR SUBCUT SCH (10:34)
[2019-05-03] MEDS: GABAPENTIN 400MG CAPSULE PO SCH ×2 (10:35→16:59)
[2019-05-03] MEDS ORDERED: MESALAMINE PO SCH (10:45)
[2019-05-03] MEDS: LORAZEPAM 2MG/ML CPJ IV PRN ×2 (11:02→16:50)
[2019-05-03] MEDS: HYDROMORPHONE HCL/PF 2MG/ML CPJ IV PRN ×2 (11:03→18:03)
[2019-05-03 12:00] VITALS: BP 106/66
[2019-05-03 12:40] LABS: CLARITY URINE CLEAR (CLEAR); COLOR URINE YELLOW (YELLOW); KETONES URINE NEGATIVE (NEGATIVE); LEUKOCYTE ESTERASE URINE TRACE (NEGATIVE); NITRITE URINE NEGATIVE (NEGATIVE); OCCULT BLOOD URINE 3+ (NEGATIVE); PROTEIN URINE 1+ (NEGATIVE); SPECIFIC GRAVITY URINE 1.007 (1.005-1.030); UROBILINOGEN URINE 0.2 E.U./dL (0.2-1.0)
[2019-05-03] MEDS: MESALAMINE 400 MG CAPSULE.DR PO SCH ×2 (15:14→16:59)
[2019-05-03] MEDS: PREDNISONE 20MG TABLET PO SCH (15:15)
[2019-05-03] MEDS: DICYCLOMINE HCL 20MG TABLET PO SCH (16:59)
[2019-05-03 20:31] VITALS: BP 98/45
[2019-05-03] MEDS: LEVETIRACETAM 500MG TABLET PO SCH (20:38)
[2019-05-03] MEDS ORDERED: ZOLPIDEM TARTRATE 5MG TABLET PO PRN (23:15)
[2019-05-04] VITALS (8 sets, daily range): BP systolic 95–110; BP diastolic 52–69
[2019-05-04] MEDS: HYDROMORPHONE HCL/PF 2MG/ML CPJ IV PRN ×4 (00:10→20:31)
[2019-05-04] MEDS: LORAZEPAM 2MG/ML CPJ IV PRN ×5 (08:21→23:57)
[2019-05-04] MEDS: PREDNISONE 20MG TABLET PO SCH (08:38)
[2019-05-04] MEDS: LEVETIRACETAM 500MG TABLET PO SCH ×2 (08:39→21:58)
[2019-05-04] MEDS: GABAPENTIN 400MG CAPSULE PO SCH ×2 (08:39→16:03)
[2019-05-04] MEDS: MESALAMINE 400 MG CAPSULE.DR PO SCH ×3 (08:39→16:03)
[2019-05-04] MEDS: DICYCLOMINE HCL 20MG TABLET PO SCH ×2 (09:00→16:03)
[2019-05-04] MEDS: ENOXAPARIN 40MG/0.4ML SYR SUBCUT SCH (16:39)
[2019-05-04 19:25] LABS: *COCAINE SCREEN URINE NEGATIVE (NEGATIVE); CANNABINOID URINE SCREEN NEGATIVE (NEGATIVE); METHADONE URINE SCREEN NEGATIVE (NEGATIVE); OPIATES URINE SCREEN NEGATIVE (NEGATIVE); PHENCYCLIDINE URINE SCREEN NEGATIVE (NEGATIVE)
[2019-05-04 19:26] LABS: *AMPHETAMINES SCREEN URINE NEGATIVE (NEGATIVE); *BARBITURATES SCREEN URINE NEGATIVE (NEGATIVE); *BENZODIAZEPINES SCREEN URINE NEGATIVE (NEGATIVE)
[2019-05-05] VITALS: BP 103/52
[2019-05-05] MEDS: HYDROMORPHONE HCL/PF 2MG/ML CPJ IV PRN (02:35)
[2019-05-05] MEDS: LORAZEPAM 2MG/ML CPJ IV PRN ×4 (03:35→11:33)
[2019-05-05 04:00] VITALS: BP 94/63
[2019-05-05 08:00] VITALS: BP 99/55
[2019-05-05] MEDS ORDERED: THIAMINE HCL 100MG TABLET PO SCH (09:00)
[2019-05-05] MEDS ORDERED: FOLIC ACID 1MG TABLET PO SCH (09:00)
[2019-05-05] MEDS ORDERED: MULTIVITAMINS,THER W-MINERALS TABLET PO SCH (09:00)
[2019-05-05] MEDS: MESALAMINE 400 MG CAPSULE.DR PO SCH ×3 (09:42→17:12)
[2019-05-05] MEDS: PREDNISONE 20MG TABLET PO SCH (09:43)
[2019-05-05] MEDS: DICYCLOMINE HCL 20MG TABLET PO SCH ×2 (09:43→17:12)
[2019-05-05] MEDS: LEVETIRACETAM 500MG TABLET PO SCH (09:43)
[2019-05-05] MEDS: GABAPENTIN 400MG CAPSULE PO SCH ×2 (09:44→17:12)
[2019-05-05 12:00] VITALS: BP 90/61
[2019-05-05] MEDS ORDERED: HYDROMORPHONE HCL 2MG TABLET PO NR (13:15)
[2019-05-05] MEDS ORDERED: PANT40TA4 MT (13:16)
[2019-05-05] MEDS ORDERED: GABA800T97 PO (13:16)
[2019-05-05 16:00] VITALS: BP 83/42
[2019-05-05] MEDS: ENOXAPARIN 40MG/0.4ML SYR SUBCUT SCH (17:13)
[2019-05-05 17:30] VITALS: BP 98/52
== END 2019-05-05 18:51 | disposition home or self-care (01) | DRG 245 ==
LOC: ER 04:44 → 6WST 15:38 → EDBEDREQSVC 15:38 → EDBEDREQ 15:44 → EDBEDREQTM 15:44 → CANRESERV 15:59 → ENRESERV 15:59 → 6EST 05-04 12:28
PROVIDERS: ADMIT Internal Medicine; ATTEND Internal Medicine
DX: K50.90 Crohn's disease, unspecified, without complications (principal); I11.0 Hypertensive heart disease with heart failure; E44.1 Mild protein-calorie malnutrition; I50.9 Heart failure, unspecified; K83.8 Other specified diseases of biliary tract; F20.0 Paranoid schizophrenia; D64.9 Anemia, unspecified; E87.6 Hypokalemia; F17.210 Nicotine dependence, cigarettes, uncomplicated; Z59.0 Homelessness; Z90.49 Acquired absence of other specified parts of digestive tract; G40.909 Epilepsy, unspecified, not intractable, without status epilepticus; Z90.710 Acquired absence of both cervix and uterus; Z91.14 Patient's other noncompliance with medication regimen; Z91.5 Personal history of self-harm
CPT/HCPCS: 36415; 70551; 74177; 76700; 80305; 81003; 93970; 96374; 99285; C1893; J1170; J1650; J1953; J2060; J2270; J2405; J7030; J7050; J7512; Q9967

== ENCOUNTER 2020-05-05 23:36 | Emergency (ER) | payer MEDICAID, OTHER ==
[~2020-05-05] VITALS: Ht 167.6 cm; Wt 83.0 kg
[~2020-05-05 23:36] MED LIST changes: +PANT40TA4 MT
[2020-05-06 00:39] LABS: BASOPHILS % 0.4 % (0.0-2.0); EOSINOPHILS % 0.5 % (0.0-5.0); HEMATOCRIT. 33.9 % (36.0-48.0); HEMOGLOBIN. 11.5 g/dL (12.0-16.0); LYMPHOCYTES % 20.1 % (20.0-50.0); MEAN PLATELET VOLUME 7.1 fl (7.4-10.4); MONOCYTES % 6.9 % (2.0-8.0); NEUTROPHILS % 72.1 % (40.0-76.0); PLATELET 418 x1000/uL (130-400); RED BLOOD CELL COUNT 3.95 mill/uL (4.2-5.4); RED CELL DISTRIBUTION WIDTH 14.7 % (11.6-14.6)
[2020-05-06 00:47] LABS: CHLORIDE 102 mEq/L (98-107)
[2020-05-06 00:52] LABS: ETHANOL BLOOD 16 mg/dL
[2020-05-06] MEDS ORDERED: POTASSIUM CHLORIDE 20MEQ TABLET SR PO NR (01:15)
[2020-05-06] MEDS ORDERED: CHLORDIAZEPOXIDE 25MG CAPSULE PO ONE (04:45)
[2020-05-06] MEDS ORDERED: LORAZEPAM 1MG TABLET PO ONE ×2 (06:00→14:45)
[2020-05-06 09:36] LABS: CLARITY URINE CLOUDY (CLEAR); COLOR URINE DARK YELLOW (YELLOW); KETONES URINE TRACE (NEGATIVE); LEUKOCYTE ESTERASE URINE 2+ (NEGATIVE); NITRITE URINE NEGATIVE (NEGATIVE); OCCULT BLOOD URINE 3+ (NEGATIVE); PH URINE 6.5 (4.5-8.0); PROTEIN URINE 2+ (NEGATIVE); SPECIFIC GRAVITY URINE 1.024 (1.005-1.030)
[2020-05-06 09:51] LABS: *BARBITURATES SCREEN URINE NEGATIVE (NEGATIVE); *BENZODIAZEPINES SCREEN URINE NEGATIVE (NEGATIVE); *COCAINE SCREEN URINE NEGATIVE (NEGATIVE); METHADONE URINE SCREEN NEGATIVE (NEGATIVE); OPIATES URINE SCREEN NEGATIVE (NEGATIVE)
[2020-05-06 09:52] LABS: CANNABINOID URINE SCREEN NEGATIVE (NEGATIVE); PHENCYCLIDINE URINE SCREEN NEGATIVE (NEGATIVE)
[2020-05-06 09:53] LABS: *AMPHETAMINES SCREEN URINE PRESUMTIVE POSITIVE (NEGATIVE)
[2020-05-06] MEDS: OLANZAPINE 5MG TABLET PO SCH ×2 (15:12→17:45)
[2020-05-06 17:13] VITALS: BP 121/64
== END 2020-05-06 18:06 ==
LOC: ER 23:36
DX: T43.621A Poisoning by amphetamines, accidental (unintentional), initial encounter (principal); R45.851 Suicidal ideations; E87.6 Hypokalemia; F10.239 Alcohol dependence with withdrawal, unspecified; R60.0 Localized edema; F20.9 Schizophrenia, unspecified; I25.10 Atherosclerotic heart disease of native coronary artery without angina pectoris; K50.90 Crohn's disease, unspecified, without complications; Z90.49 Acquired absence of other specified parts of digestive tract; Z98.890 Other specified postprocedural states; Z79.899 Other long term (current) drug therapy; Z88.6 Allergy status to analgesic agent; Z88.8 Allergy status to other drugs, medicaments and biological substances; Z88.5 Allergy status to narcotic agent; Y92.89 Other specified places as the place of occurrence of the external cause; Y90.0 Blood alcohol level of less than 20 mg/100 ml
CPT/HCPCS: 36415; 71045; 80053; 80305; 80307; 80320; 80329; 81003; 81025; 82962; 83880; 84443; 85025; 93005; 99285; G0480

== ENCOUNTER 2020-08-09 10:00 | Emergency (ER) | payer MEDICAID ==
[~2020-08-09] VITALS: Ht 170.2 cm; Wt 82.0 kg
[2020-08-09 12:24] LABS: BASOPHILS % 0.2 % (0.0-2.0); EOSINOPHILS % 0.3 % (0.0-5.0); HEMATOCRIT. 38.6 % (36.0-48.0); HEMOGLOBIN. 13.2 g/dL (12.0-16.0); MEAN CORPUSCULAR HEMOGLOBIN 28.6 pg (28.0-32.0); MEAN CORPUSCULAR VOLUME 83.9 fL (81.0-99.0); MONOCYTES % 4.9 % (2.0-8.0); NEUTROPHILS % 79.6 % (40.0-76.0); PLATELET 307 x1000/uL (130-400); RED BLOOD CELL COUNT 4.61 mill/uL (4.2-5.4); RED CELL DISTRIBUTION WIDTH 15.2 % (11.6-14.6)
[2020-08-09 12:31] LABS: CHLORIDE 103 mEq/L (98-107)
[2020-08-09 12:37] LABS: ETHANOL BLOOD < 10 mg/dL
[2020-08-09 12:45] LABS: CARBAMAZEPINE < 0.5 ug/mL (4-12); PHENOBARBITAL < 2.1 ug/mL (15.0-40.0); VALPROIC ACID < 3.0 ug/mL (50-100)
[2020-08-09] MEDS ORDERED: ACETAMINOPHEN 325MG TABLET PO ONE (13:00)
[2020-08-09] MEDS ORDERED: LORAZEPAM 2MG/ML CPJ IV ONE (13:00)
[2020-08-09] MEDS ORDERED: POTASSIUM CHLORIDE 20MEQ TABLET SR PO ONE (13:00)
[2020-08-09] MEDS ORDERED: LEVETIRACETAM 500MG TABLET PO ONE (13:00)
[2020-08-09 16:33] LABS: CLARITY URINE CLOUDY (CLEAR); COLOR URINE YELLOW (YELLOW); KETONES URINE 2+ (NEGATIVE); LEUKOCYTE ESTERASE URINE 2+ (NEGATIVE); NITRITE URINE NEGATIVE (NEGATIVE); OCCULT BLOOD URINE 3+ (NEGATIVE); PROTEIN URINE 1+ (NEGATIVE); SPECIFIC GRAVITY URINE 1.021 (1.005-1.030); UROBILINOGEN URINE 0.2 E.U./dL (0.2-1.0)
[2020-08-09 16:53] LABS: *BARBITURATES SCREEN URINE NEGATIVE (NEGATIVE)
[2020-08-09 16:54] LABS: *BENZODIAZEPINES SCREEN URINE NEGATIVE (NEGATIVE); CANNABINOID URINE SCREEN NEGATIVE (NEGATIVE); METHADONE URINE SCREEN NEGATIVE (NEGATIVE); PHENCYCLIDINE URINE SCREEN NEGATIVE (NEGATIVE)
[2020-08-09 17:10] LABS: *AMPHETAMINES SCREEN URINE PRESUMTIVE POSITIVE (NEGATIVE); *COCAINE SCREEN URINE PRESUMTIVE POSITIVE (NEGATIVE); OPIATES URINE SCREEN PRESUMTIVE POSITIVE (NEGATIVE)
[2020-08-10 09:11] VITALS: BP 92/58
== END 2020-08-10 10:32 | disposition home or self-care (01) ==
LOC: ER 10:00
DX: G40.909 Epilepsy, unspecified, not intractable, without status epilepticus (principal); R45.851 Suicidal ideations; F20.9 Schizophrenia, unspecified; F15.10 Other stimulant abuse, uncomplicated; K50.90 Crohn's disease, unspecified, without complications; I25.10 Atherosclerotic heart disease of native coronary artery without angina pectoris; Z59.0 Homelessness; Z90.49 Acquired absence of other specified parts of digestive tract; Z88.5 Allergy status to narcotic agent; Z88.6 Allergy status to analgesic agent
CPT/HCPCS: 36415; 70450; 71045; 80053; 80156; 80165; 80184; 80185; 80305; 80320; 81003; 82962; 84484; 85025; 87077; 87086; 87186; 93005; 96374; 99285; J2060; Z7610; G0480

== ENCOUNTER 2023-02-11 23:01 | Inpatient (IN) | payer MEDICAID ==
[~2023-02-11] VITALS: Ht 162.6 cm; Wt 67.6 kg
[~2023-02-11 23:01] MED LIST changes: -PANT40TA4 MT; +PANT40TA51 MT
[2023-02-11] MEDS ORDERED: ONDANSETRON HCL 4MG/2ML INJ IV STA (23:14)
[2023-02-11] MEDS ORDERED: ACETAMINOPHEN 325MG TABLET PO ONE (23:15)
[2023-02-11] MEDS ORDERED: SODIUM CHLORIDE 0.9% 1,000 ML IV ONE (23:15)
[2023-02-11] MEDS ORDERED: LEVETIRACETAM 1000MG PREMIX 100 ML IV ONE (23:15)
[2023-02-12] MEDS ORDERED: LEVETIRACETAM 1000MG PREMIX 100 ML IV NR (02:00)
[2023-02-12] MEDS ORDERED: ACETAMINOPHEN 325MG TABLET PO NR (02:00)
[2023-02-12] MEDS ORDERED: ONDANSETRON HCL 4MG/2ML INJ IV NR (02:00)
[2023-02-12 02:33] LABS: CHLORIDE 108 mEq/L (98-107)
[2023-02-12 02:36] LABS: HEMATOCRIT. 38.6 % (36.0-48.0); HEMOGLOBIN. 12.8 g/dL (12.0-16.0); MEAN CORPUSCULAR HEMOGLOBIN 29.3 pg (28.0-32.0); MEAN CORPUSCULAR VOLUME 88.1 fL (81.0-99.0); RED BLOOD CELL COUNT 4.39 mill/uL (4.2-5.4); RED CELL DISTRIBUTION WIDTH 13.5 % (11.6-14.6)
[2023-02-12 02:37] LABS: BASOPHILS % 0.1 % (0.0-2.0); EOSINOPHILS % 1.8 % (0.0-5.0); LYMPHOCYTES % 21.9 % (20.0-50.0); MEAN PLATELET VOLUME 8.5 fl (7.4-10.4); MONOCYTES % 8.2 % (2.0-8.0); PLATELET 274 x1000/uL (130-400)
[2023-02-12 02:41] LABS: ETHANOL BLOOD < 10 mg/dL (-10)
[2023-02-12 02:52] LABS: CARBAMAZEPINE < 0.5 ug/mL (4-12)
[2023-02-12] MEDS ORDERED: POTASSIUM CHLORIDE 20MEQ TABLET SR PO ONE (03:00)
[2023-02-12] MEDS ORDERED: POTASSIUM CHLORIDE 20MEQ TABLET SR PO NR ×2 (05:30→06:45)
[2023-02-12] MEDS ORDERED: DIPHENHYDRAMINE 50MG CAPSULE PO PRN (06:45)
[2023-02-12 08:00] VITALS: BP 140/85; PULSE 78; RESP 12; TEMP 98
[2023-02-12] MEDS: PANTOPRAZOLE 40MG DR TABLET PO SCH (08:20)
[2023-02-12] MEDS: HYDROCODONE/ACETAMINOPHEN 10/325MG TABLET PO PRN ×2 (08:38→21:05)
[2023-02-12] MEDS ORDERED: NALOXONE HCL 0.4MG/ML VIAL IV PRN (08:45)
[2023-02-12] MEDS ORDERED: LEVETIRACETAM 500MG TABLET PO SCH (09:00)
[2023-02-12] MEDS ORDERED: PREDNISONE 20MG TABLET PO SCH (09:00)
[2023-02-12] MEDS ORDERED: MESALAMINE 250MG CAPSULE EXTENDED RELEASE PO SCH (09:00)
[2023-02-12] MEDS: LEVETIRACETAM 250MG TABLET PO SCH ×2 (10:03→21:03)
[2023-02-12] MEDS: MESALAMINE 400 MG CAPSULE.DR PO SCH ×3 (10:04→16:45)
[2023-02-12] MEDS: PREDNISONE 20MG TABLET PO SCH (10:04)
[2023-02-12 12:00] VITALS: BP 117/81; PULSE 96; RESP 19; TEMP 96.6
[2023-02-12] MEDS: GABAPENTIN 400MG CAPSULE PO SCH ×2 (14:56→21:03)
[2023-02-12] MEDS: LORAZEPAM 1MG TABLET PO PRN ×2 (15:01→21:05)
[2023-02-12 16:00] VITALS: BP 100/59; PULSE 77; RESP 19; TEMP 97.6
[2023-02-12] MEDS: DICYCLOMINE HCL 20MG TABLET PO SCH (17:34)
[2023-02-12 17:40] LABS: CLARITY URINE CLEAR (CLEAR); COLOR URINE YELLOW (YELLOW); KETONES URINE NEGATIVE (NEGATIVE); LEUKOCYTE ESTERASE URINE NEGATIVE (NEGATIVE); NITRITE URINE NEGATIVE (NEGATIVE); OCCULT BLOOD URINE NEGATIVE (NEGATIVE); PROTEIN URINE NEGATIVE (NEGATIVE); SPECIFIC GRAVITY URINE 1.003 (1.005-1.030); UROBILINOGEN URINE 0.2 E.U./dL (0.2-1.0)
[2023-02-12 17:50] LABS: *AMPHETAMINES SCREEN URINE NEGATIVE (NEGATIVE); *BARBITURATES SCREEN URINE NEGATIVE (NEGATIVE); *BENZODIAZEPINES SCREEN URINE NEGATIVE (NEGATIVE); *COCAINE SCREEN URINE NEGATIVE (NEGATIVE); CANNABINOID URINE SCREEN NEGATIVE (NEGATIVE); METHADONE URINE SCREEN NEGATIVE (NEGATIVE); PHENCYCLIDINE URINE SCREEN NEGATIVE (NEGATIVE)
[2023-02-12 17:51] LABS: OPIATES URINE SCREEN PRESUMTIVE POSITIVE (NEGATIVE)
[2023-02-12 20:00] VITALS: BP 104/74; PULSE 75; RESP 20; TEMP 97.7
[2023-02-13] VITALS: BP 111/70; PULSE 70; RESP 19; TEMP 97.6
[2023-02-13] MEDS: LORAZEPAM 1MG TABLET PO PRN ×2 (03:16→09:17)
[2023-02-13] MEDS: HYDROCODONE/ACETAMINOPHEN 10/325MG TABLET PO PRN ×2 (03:16→09:19)
[2023-02-13 06:00] VITALS: BP 108/69; PULSE 73; RESP 20; TEMP 96.1
[2023-02-13] MEDS: GABAPENTIN 400MG CAPSULE PO SCH (06:51)
[2023-02-13] MEDS: PANTOPRAZOLE 40MG DR TABLET PO SCH (06:51)
[2023-02-13] MEDS: PREDNISONE 20MG TABLET PO SCH (06:51)
[2023-02-13] MEDS: MESALAMINE 400 MG CAPSULE.DR PO SCH ×3 (09:13→12:56)
[2023-02-13] MEDS: DICYCLOMINE HCL 20MG TABLET PO SCH (09:14)
[2023-02-13] MEDS: LEVETIRACETAM 250MG TABLET PO SCH (09:14)
[2023-02-13 09:19] VITALS: RESP 18
[2023-02-13 14:30] VITALS: BP 114/69; PULSE 74; TEMP 98.8; O2SAT 100
[2023-02-14] MEDS ORDERED: HYDR-4001 MT (05:45)
[2023-02-14] MEDS ORDERED: SULF1TAB48 MT (05:45)
[2023-02-14] MEDS ORDERED: FAMOTIDINE 20MG TABLET PO SCH (09:00)
== END 2023-02-13 14:45 | disposition home or self-care (01) | DRG 282 ==
LOC: ER 23:19 → 6EST 02-12 00:37 → ENRESERV 02-12 04:45
PROVIDERS: ADMIT Internal Medicine; ATTEND Internal Medicine
DX: K85.20 Alcohol induced acute pancreatitis without necrosis or infection (principal); K76.0 Fatty (change of) liver, not elsewhere classified; E87.6 Hypokalemia; G40.909 Epilepsy, unspecified, not intractable, without status epilepticus; K50.90 Crohn's disease, unspecified, without complications; F20.9 Schizophrenia, unspecified; K86.89 Other specified diseases of pancreas; I25.10 Atherosclerotic heart disease of native coronary artery without angina pectoris; F17.210 Nicotine dependence, cigarettes, uncomplicated; Z88.6 Allergy status to analgesic agent; Z90.49 Acquired absence of other specified parts of digestive tract; Z98.891 History of uterine scar from previous surgery
CPT/HCPCS: 36415; 74176; 76700; 80053; 80156; 80165; 80185; 80305; 80320; 81003; 84484; 85025; 93005; 99285; J1953; J2405; J7030; J7512; Q0163; G0480

== ENCOUNTER 2023-02-14 01:14 | Emergency (ER) | payer MEDICAID ==
[~2023-02-14] VITALS: Ht 167.6 cm; Wt 66.0 kg
[~2023-02-14 01:14] MED LIST changes: -HYDR2TAB4 PO
[2023-02-14 01:17] VITALS: O2SAT 98
[2023-02-14] MEDS ORDERED: DICLOFENAC SODIUM 75MG DR (EC) TABLET PO ONE (02:00)
[2023-02-14] MEDS ORDERED: HYDROCODONE/ACETAMINOPHEN 10/325MG TABLET PO ONE (02:00)
[2023-02-14] MEDS ORDERED: PANTOPRAZOLE 40MG DR TABLET PO ONE (02:15)
[2023-02-14 02:46] VITALS: BP 109/66; PULSE 71; RESP 16; TEMP 98.7
[2023-02-14 02:52] LABS: CLARITY URINE CLEAR (CLEAR); COLOR URINE YELLOW (YELLOW); KETONES URINE NEGATIVE (NEGATIVE); LEUKOCYTE ESTERASE URINE 2+ (NEGATIVE); NITRITE URINE NEGATIVE (NEGATIVE); OCCULT BLOOD URINE NEGATIVE (NEGATIVE); PH URINE 6.5 (4.5-8.0); PROTEIN URINE NEGATIVE (NEGATIVE); SPECIFIC GRAVITY URINE 1.011 (1.005-1.030); UROBILINOGEN URINE 0.2 E.U./dL (0.2-1.0)
[2023-02-14] MEDS ORDERED: DIPHENHYDRAMINE 50MG/ML VIAL IM PRN ×2 (03:00)
[2023-02-14 03:04] LABS: *AMPHETAMINES SCREEN URINE NEGATIVE (NEGATIVE); *BARBITURATES SCREEN URINE NEGATIVE (NEGATIVE); *BENZODIAZEPINES SCREEN URINE NEGATIVE (NEGATIVE); *COCAINE SCREEN URINE NEGATIVE (NEGATIVE); CANNABINOID URINE SCREEN NEGATIVE (NEGATIVE); METHADONE URINE SCREEN NEGATIVE (NEGATIVE); PHENCYCLIDINE URINE SCREEN NEGATIVE (NEGATIVE)
[2023-02-14 03:13] LABS: OPIATES URINE SCREEN PRESUMTIVE POSITIVE (NEGATIVE)
[2023-02-14] MEDS ORDERED: DIPHENHYDRAMINE 25MG CAPSULE PO ONE (04:30)
[2023-02-14 05:09] LABS: CHLORIDE 101 mEq/L (98-107)
[2023-02-14 05:15] LABS: PROTHROMBIN TIME 10.5 sec (9.6-11.0)
[2023-02-14] MEDS ORDERED: SULFAMETHOXAZOLE/TRIMETHOPRIM 800/160MG TABLET PO ONE (05:15)
[2023-02-14 05:17] LABS: ETHANOL BLOOD < 10 mg/dL (-10)
[2023-02-14 05:19] LABS: BASOPHILS % 0.2 % (0.0-2.0); EOSINOPHILS % 1.7 % (0.0-5.0); HEMATOCRIT. 38.7 % (36.0-48.0); HEMOGLOBIN. 12.9 g/dL (12.0-16.0); LYMPHOCYTES % 32.8 % (20.0-50.0); MEAN CORPUSCULAR HEMOGLOBIN 29.4 pg (28.0-32.0); MEAN CORPUSCULAR VOLUME 88.4 fL (81.0-99.0); MEAN PLATELET VOLUME 8.3 fl (7.4-10.4); MONOCYTES % 7.5 % (2.0-8.0); NEUTROPHILS % 57.8 % (40.0-76.0); PLATELET 263 x1000/uL (130-400); RED BLOOD CELL COUNT 4.38 mill/uL (4.2-5.4); RED CELL DISTRIBUTION WIDTH 13.3 % (11.6-14.6)
[2023-02-14] MEDS ORDERED: HYDR-4001 MT (05:45)
[2023-02-14] MEDS ORDERED: SULF1TAB48 MT (05:45)
== END 2023-02-14 06:58 | disposition left against medical advice (07) ==
LOC: ER 01:23
DX: N39.0 Urinary tract infection, site not specified (principal); Z88.1 Allergy status to other antibiotic agents; Z88.6 Allergy status to analgesic agent; Z88.9 Allergy status to unspecified drugs, medicaments and biological substances; Z79.899 Other long term (current) drug therapy; Z98.890 Other specified postprocedural states; Z86.59 Personal history of other mental and behavioral disorders
CPT/HCPCS: 80053; 80305; 81003; 80320; 83690; 85025; 85610; 36415; 74176; 96372; 99285; Q0163; J1200; Z7610; G0480

== ENCOUNTER 2023-08-18 13:21 | Emergency (ER) | payer MEDICAID ==
[~2023-08-18] VITALS: Ht 165.1 cm; Wt 70.0 kg
[~2023-08-18 13:21] MED LIST changes: +HYDR-4001 MT; +SULF1TAB48 MT
[2023-08-18 13:28] VITALS: BP 130/78; PULSE 90; RESP 18; TEMP 98.4; O2SAT 98
[2023-08-18 15:08] LABS: BASOPHILS % 0.2 % (0.0-2.0); EOSINOPHILS % 1.6 % (0.0-5.0); HEMATOCRIT. 39.4 % (36.0-48.0); HEMOGLOBIN. 12.7 g/dL (12.0-16.0); LYMPHOCYTES % 15.9 % (20.0-50.0); MEAN CORPUSCULAR HEMOGLOBIN 28.3 pg (28.0-32.0); MEAN CORPUSCULAR HGB CONC 32.1 g/dL (31.0-37.0); MEAN CORPUSCULAR VOLUME 88.1 fL (81.0-99.0); MEAN PLATELET VOLUME 7.4 fl (7.4-10.4); MONOCYTES % 14.9 % (2.0-8.0); NEUTROPHILS % 67.4 % (40.0-76.0); PLATELET 406 x1000/uL (130-400); RED BLOOD CELL COUNT 4.47 mill/uL (4.2-5.4); RED CELL DISTRIBUTION WIDTH 13.6 % (11.6-14.6); WHITE BLOOD COUNT 9.5 x1000/uL (4.5-11.0)
[2023-08-18 15:33] LABS: ALANINE AMINOTRANSFERASE 20 IU/L (10-49); ASPARTATE AMINOTRANSFERASE 23 IU/L (<34); BILIRUBIN TOTAL 0.4 mg/dL (0.1-1.0); CALCIUM 9.3 mg/dL (8.7-10.4); CARBON DIOXIDE 27 mEq/L (21-32); CHLORIDE 101 mEq/L (98-107); CREATININE 0.6 mg/dL (0.6-1.0); GLUCOSE 82 mg/dL (70-105); POTASSIUM 3.8 mEq/L (3.5-5.1); SODIUM 134 mEq/L (136-145)
[2023-08-18 15:36] LABS: ETHANOL BLOOD < 10 mg/dL (<10); UREA NITROGEN BLOOD < 5 mg/dL (9-23)
[2023-08-18] MEDS ORDERED: MESA1.2T3 PO (16:03)
[2023-08-18] MEDS ORDERED: P20 PO (16:03)
[2023-08-18] MEDS ORDERED: LOPE2CAP MT (16:03)
[2023-08-18] MEDS ORDERED: HYDROCODONE/ACETAMINOPHEN 5/325MG TABLET PO ONE (16:15)
[2023-08-18] MEDS ORDERED: PREDNISONE 20MG TABLET PO SCH (19:57)
[2023-08-18] MEDS ORDERED: HYDROCODONE/ACETAMINOPHEN 5/325MG TABLET PO NR (19:59)
[2023-08-18] MEDS ORDERED: PREDNISONE 20MG TABLET PO ONE (20:00)
== END 2023-08-18 20:20 | disposition home or self-care (01) ==
LOC: ER 13:21
DX: K50.90 Crohn's disease, unspecified, without complications (principal); F31.9 Bipolar disorder, unspecified; F20.9 Schizophrenia, unspecified; F14.10 Cocaine abuse, uncomplicated; F15.10 Other stimulant abuse, uncomplicated; Z79.899 Other long term (current) drug therapy
CPT/HCPCS: 80053; 80320; 83690; 85025; 36415; 99283; J7512; G0480